=== PATIENT | female | born 1935 | race Caucasian/White ===

== ENCOUNTER 2023-06-24 17:17 | Emergency (ER) | payer MEDICARE, BC, SELFPAY ==
[2023-06-24 17:22] VITALS: BP 130/83; BMI 27.0
[2023-06-24 17:30] VITALS: BP 130/83
[2023-06-24 17:37] LABS: % Basophils 0.3 % (0-2); % Eosinophils 1.1 % (0-6); % Immature Granulocytes 0.8 % (0-0.5); % Lymphocytes 27.7 % (20.5-51.1); % Monocytes 9.6 % (1.7-9.3); % Neutrophils 60.5 % (42.2-75.2); Absolute Eosinophils 0.1 10^3/uL (0-0.7); Absolute Immature Granulocytes 0.1 10^3/uL (0-0.05); Absolute Lymphocytes 1.8 10^3/uL (1.2-3.4); Absolute Monocytes 0.6 10^3/uL (0.1-0.6); Hematocrit 33.4 % (37.0-47.0); Hemoglobin 11.5 g/dL (12.0-16.0); Mean Corp Hgb Conc. 34.4 g/dL (33.0-37.0); Nucleated Red Blood Cells % 0 %; Platelet Count 170 10^3/uL (130-400); Red Blood Cell Count 3.71 10^6/uL (4.20-5.40); Red Cell Dist. Width 12.3 % (11.5-14.5); White Blood Cell Count 6.7 10^3/uL (4.8-10.8)
[2023-06-24 17:53] LABS: ALT (SGPT) 15 U/L (0-35); AST (SGOT) 19 U/L (14-36); Albumin 3.9 g/dl (3.5-5.0); Alkaline Phosphatase 61 U/L (38-126); Blood Urea Nitrogen 95 mg/dl (7-17); Calcium 10.4 mg/dl (8.4-10.2); Carbon Dioxide 26 mmol/L (22-30); Chloride 95 mmol/L (98-107); Estimated Creatinine Clearance 31 ml/min; Glucose 358 mg/dl (70-99); Potassium 3.6 mmol/L (3.5-5.1); Sodium 134 mmol/L (135-145); Total Bilirubin 0.6 mg/dl (0.2-1.3); Total Protein 6.7 g/dl (6.3-8.2); eGFR 48.03
[2023-06-24 18:00] VITALS: BP 138/77
[2023-06-24 18:03] LABS: Troponin I < 0.012 ng/ml
--- NOTE | 2023-06-24 18:54 | ED.GENMED ---
History of Present Illness
General
Chief Complaint: Chest Pain
Source: patient
Exam Limitations: none
Time Seen by Provider: 06/24/23 18:38
Travel History
Have you had any contact with someone who has COVID-19?: No
Do you have any symptoms of coronavirus? Fever > 100 degrees, chills, cough, shortness of breath, sore throat, loss of taste or smell, muscle aches, or headache?: No
History of Present Illness
History of Present Illness:
88-year-old female presents from facility with complaints of generalized discomfort. She is somewhat of a difficult historian but complains of pain all over. She was that she could have pneumonia at her facility. No reported fever. She denies
any urinary symptoms. She denies chest pain to me. She denies shortness of breath. No other complaints at this time.
Past History
Past History
ED Past Medical History: NIDDM and Other (Diverticulitis, diverticulosis, stress incontinence, right bundle, cataracts)
ED Past Surgical History: Orthopedic (Carpal tunnel release) and Other (Cataracts)
Social History
Tobacco: Non-smoker
Alcohol: None
Drug: None
Personal:
Living: snf
Phy Exam
Physical Exam
Physical Exam:
General: Well appearing female, NAD
HEENT: NC/AT
Heart: RRR, no mumurs
Lungs; No obvious wheeze or rales
Ext: No cyanosis or edema
skin: warm, no rashes
Psych: anxious, tearful
Scores
Heart Score for Chest Pain Patients
STEMI patient?: No
History: Slightly or Non-Suspicious
ECG: Normal
Age: >/= 65 years
Risk Factors: 1 or 2 Risk Factors
Troponin: </= Normal Limit
Heart Score for Chest Pain Patients: 3
Heart Score Risk: 2.5% MACE over next 6 weeks
Course
Orders/Labs/Results
Orders:
Orders
06/24/23 17:25
Electrocardiogram (*1) Urgent
Reason for Study: Chest Pain
EKG- Treatment ONCE
06/24/23 17:32
Complete Blood Count/With Diff Urgent
Comprehensive Metabolic Panel Urgent
Creatine Phosphokinase Urgent
Comment: ADD ON
NT-proBNP Urgent
Comment: ADD ON
Troponin I Urgent
06/24/23 18:51
CR Chest - 2 Views Urgent
Comment:
Reason For Exam: cough
06/24/23 18:54
Add On- LAB Urgent
Tests Added?: cpk
06/24/23 18:58
COVID-19 Antigen Urgent
Source: Nasal Swab
Influenza A+B Rapid Molecular Urgent
KATT Source: Nasal Swab
Specimen Description:
06/24/23 18:59
Add On- LAB Stat
Tests Added?: NT-proBNP
06/24/23 21:34
Acetaminophen [Tylenol] 650 mg PO NOW STA
06/24/23 22:05
Urinalysis Reflex To Culture Urgent
Date Specimen was Collected: 06/24/23
Time Specimen was Collected: 22:04
06/24/23 22:37
0.9% Sodium Chloride 500 ml [Nss] 500 ml IV BOLUS
Abnormal Lab Results
06/24/23 06/24/23
17:32 22:05
RBC 3.71 L 10^6/uL
(4.20-5.40)
Hgb 11.5 L g/dL
(12.0-16.0)
Hct 33.4 L %
(37.0-47.0)
Abs Immat Gran (auto) 0.1 H 10^3/uL
(0-0.05)
Immature Gran % 0.8 H %
(0-0.5)
Monocytes % 9.6 H %
(1.7-9.3)
Sodium 134 L mmol/L
(135-145)
Chloride 95 L mmol/L
(98-107)
BUN 95 H mg/dl
(7-17)
Creatinine 1.1 H mg/dL
(0.6-1.0)
Glucose 358 H mg/dl
(70-99)
Calcium 10.4 H mg/dl
(8.4-10.2)
Urine Glucose 1+ A
(Negative)
06/24/23 17:32
06/24/23 17:32
Vital Signs
Initial and Last Documented VS:
Initial Vital Signs
BP
130/83
06/24/23 17:22
Last Documented Vital Signs
Temp Pulse Resp BP Pulse Ox
97.7 F 76 17 154/116 94
06/24/23 17:30 06/24/23 20:15 06/24/23 20:15 06/24/23 20:01 06/24/23 20:01
MDM/Problems Addressed
Differential Diagnosis Includes:
Generalized discomfort. No specific localized complaints to offer. She was told she had coarse breath sounds at the facility. Will check labs. Will get x-ray of chest COVID and flu as well as urinalysis.
*Critical Care Note
Total Time (30-74mins, 75-104mins- exclusive of procedures): Not Applicable
Update Note
Update Note:
Patient reevaluated multiple times. Vital signs remained stable. Urinalysis was obtained which is negative. Patient looks little dry with a BUN elevation slightly elevated blood sugar. She was given some fluids here but no indication for any
admission to hospital. Discharge back to facility
ED Attending Note
-
Portions of this chart may have been created with voice recognition software.� Occasional wrong word or��sound alike� substitutions may have occurred due to the inherent limitations of voice recognition software.
Discharge Plan
Departure
Patient Disposition: Home (Routine Discharge)
Date of Disposition: 06/24/23
Time of Disposition: 23:16
Patient with high blood pressure during this ER visit?: No
Discharge Problem:
Diabetes mellitus with neuropathy
Prescriptions:
No Action
carvedilol 25 mg Tablet
25 mg PO BID
ipratropium-albuterol 0.5 mg-3 mg(2.5 mg base)/3 mL Solution For Nebulization
3 ml INHALATION R Q6 PRN (Reason: SOB/wheeze)
trazodone 50 mg Tablet
50 mg PO HS
melatonin 3 mg Tablet
3 mg PO HS
acetaminophen [Tylenol Extra Strength] 500 mg Tablet
1,000 mg PO BID
prednisone 2.5 mg Tablet
2.5 mg PO DAILY
levothyroxine [Synthroid] 125 mcg Tablet
125 mcg PO DAILY
Rx Instructions:
brand not generic
fluticasone propionate 50 mcg/actuation [place],Suspension
1 spray INTRANASAL BID
insulin aspart U-100 [Novolog FlexPen U-100 Insulin] 100 unit/mL (3 mL) insulin pen
5 units SC MEALS
Patient Comments:
151-200=2units, 201-250=3units, 251-300=4units,301-350=5units, 351-400=6units
ferrous sulfate [FeroSul] 325 mg (65 mg iron) tablet
325 mg PO DAILY
furosemide [Lasix] 20 mg Tablet
20 mg PO BID@0800,1600
ibuprofen [Motrin IB] 200 mg Capsule
600 mg PO Q12H PRN (Reason: Moderate Pain)
alum-mag hydroxide-simeth [Maalox Maximum Strength] 400-400-40 mg/5 mL Suspension
30 ml PO DAILY PRN (Reason: indigestion )
potassium chloride 10 mEq Tablet Extended Release
10 meq PO DAILY
hydrocortisone [Preparation H Hydrocortisone] 1 % Cream
1 applic SC BID
Rx Instructions:
apply to hemorrhoids
acetaminophen [Tylenol] 325 mg Tablet
650 mg PO Q6H PRN (Reason: mild pain)
docusate sodium [Colace] 100 mg Capsule
200 mg PO DAILY
gabapentin 100 mg Capsule
100 mg PO BID
insulin aspart U-100 [Novolog FlexPen U-100 Insulin] 100 unit/mL (3 mL) Insulin Pen
0 - 7 sliding scale dose SC ACHS
Rx Instructions:
if 70-150= 0; 151-200= 2; 201-250= 3; 251-300= 4; 301-350= 5; 351-400= 6; 401-450= 7
methenamine hippurate 1 gram Tablet
1 g PO DAILY Qty: 30 0RF
clonazepam 0.25 mg Tablet,Disintegrating
0.25 mg PO BID Qty: 2 0RF
polyethylene glycol 3350 [Miralax] 17 gram Powder In Packet
17 g PO DAILY PRN (Reason: constipation)
sennosides 8.8 mg/5 mL Syrup
8.8 mg PO Q12H PRN (Reason: constipation)
lorazepam 0.5 mg Tablet
0.25 mg PO BID
pantoprazole 40 mg Tablet,Delayed Release (Dr/Ec)
40 mg PO DAILY
icosapent ethyl [Vascepa] 1 gram Capsule
2 g PO BID
insulin glargine [Lantus Solostar U-100 Insulin] 100 unit/mL (3 mL) insulin pen
15 unit SC HS
Referrals:
Twin Gonzalez MD [Family Provider] -
Activity Restrictions/Additional Instructions:
Continue current medication regimen. Return for worsening symptoms otherwise
Interventions
Interventions:
*Risk Screen - Suicide Last Done: 06/24/23 17:37
*General Assessment Last Done: 06/24/23 17:43
*Neglect/Abuse Screening Last Done: 06/24/23 17:38
*ED COVID-19 Vaccine History Last Done: 06/24/23 17:40
ED- Cardiac Assessment Last Done: 06/24/23 17:36
[2023-06-24 19:00] VITALS: BP 100/85
[2023-06-24 19:20] LABS: COVID-19 Antigen Negative (Negative)
[2023-06-24 19:26] LABS: Creatine Phosphokinase 54 U/L (30-135)
[2023-06-24 19:34] LABS: NT-proBNP 720 pg/ml
[2023-06-24 20:01] VITALS: BP 154/116
[2023-06-24] MEDS: TYLENOL 650 MG PO (21:45)
[2023-06-24 22:09] LABS: Urine Albumin Trace (Neg - Trace); Urine Bilirubin Negative (Negative); Urine Character Clear (Clear); Urine Color Yellow; Urine Glucose 1+ (Negative); Urine Ketone Negative (Negative); Urine Leukocyte Negative (Negative); Urine Nitrite Negative (Negative); Urine Occult Blood Negative (Negative); Urine Specific Gravity 1.015 (<1.030); Urine Urobilinogen Negative (Neg - 1+)
[2023-06-24] MEDS: NSS 500 IV (22:49)
[2023-06-25] VITALS: BP 136/89
[2023-06-25 01:44] VITALS: BP 156/92
== END 2023-06-25 02:01 | disposition home or self-care (01) ==
LOC: EMR 17:17
PROVIDERS: Physician Assistant; EMERGENCY PHYSICIAN Emergency Medicine; FAMILY PHYSICIAN Internal Medicine
DX: E11.40 Type 2 diabetes mellitus with diabetic neuropathy, unspecified (principal); R07.89 Other chest pain; E11.36 Type 2 diabetes mellitus with diabetic cataract
CPT/HCPCS: 99283; 71046; 80053; 81003; 82550; 83880; 84484; 85025; 87502; 87811; 93005

== ENCOUNTER 2023-08-25 22:44 | Inpatient (IN) | payer MEDICARE, BC, SELFPAY ==
[2023-08-25 19:37] VITALS: BP 132/78
[2023-08-25 19:38] VITALS: BMI 29.5
[2023-08-25 19:41] VITALS: BP 132/78
--- NOTE | 2023-08-25 19:47 | ED.GENMED ---
History of Present Illness
General
Chief Complaint: Breathing Problem
Source: patient, records, ambulance crew, assisted and assisted records
Exam Limitations: none
Time Seen by Provider: 08/25/23 19:36
Nursing documentation reviewed up to this point in time: agreed with
Travel History
Have you had any contact with someone who has COVID-19?: Unable to Answer
Do you have any symptoms of coronavirus? Fever > 100 degrees, chills, cough, shortness of breath, sore throat, loss of taste or smell, muscle aches, or headache?: No
History of Present Illness
History of Present Illness:
88-year-old female with a past medical history of hypertension, GERD, insulin-dependent diabetes, congestive heart failure who presents to the emergency department from [facility] via EMS for evaluation of weakness and shortness of
breath. Patient reports that she has been feeling generally unwell for the past week. She says that she has been feeling pain all over particularly in her legs. She says she has been feeling very weak. She says she has a very poor appetite. She
says she has had some increasing shortness of breath. Apparently last night patient felt symptoms were worsening, had some nausea and 3 episodes of vomiting. Finally sent to the emergency room today for evaluation. She denies any chest pain.
Denies abdominal pain. She denies any fever. She has not noticed any swelling in her legs despite report of leg pain. She denies any diarrhea. She denies any other complaints. I spoke to the assisted staff to obtain collateral history (I
spoke with the nurse who takes care of her every day): Apparently at baseline patient is very 'feisty' and yells quite a lot at the nursing staff. Apparently last night she looked unwell had an episode of vomiting and nursing staff was concerned
that she could eventually have aspirated while vomiting as she seemed to be having some breathing difficulties afterwards and was coughing up some phlegm. This morning she seemed very lethargic was not yelling like she normally would and this
concerned nursing staff which was the trigger to send her to the emergency room for assessment.
Past History
Past History
ED Past Medical History: NIDDM and Other (Diverticulitis, diverticulosis, stress incontinence, right bundle, cataracts)
ED Past Surgical History: Orthopedic (Carpal tunnel release) and Other (Cataracts)
Social History
Tobacco: Non-smoker
Alcohol: None
Drug: None
Personal:
Living: assisted
Review of Systems
Review of Systems
All Other Systems: ROS reviewed and negative except as documented in HPI and ROS
Constitutional: Reports fatigue; Denies fever or chills
EENT: Denies sore throat or runny nose
Respiratory: Reports cough and trouble breathing
Cardiac: Denies chest pain or palpitations
ABD/GI: Reports nausea and vomiting; Denies abdominal pain or diarrhea
: Denies flank pain
Musculoskeletal: Reports muscle pain (Myalgias); Denies edema, neck pain or back pain
Neurological: Denies headache, weakness or numbness
Phy Exam
Physical Exam
Physical Exam:
General: Awake, alert; chronically ill-appearing
Head: Normocephalic, atraumatic
Eyes: Conjunctiva normal, sclera anicteric
Throat: Airway intact, handling secretions
Neck: Trachea midline, supple without meningismus
Lungs: Coarse breath sounds at the right lung base; she is hypoxic to 86% requiring 4 L nasal cannula, she is mildly tachypneic
Heart: Regular rate and rhythm, no murmurs, gallops, or rubs
Abd: Soft, non distended, nontender
Neuro: Cranial nerves grossly intact, speech fluid
Extremities: Trace edema in the lower extremities bilaterally, distal extremities warm and well-perfused
Scores
Heart Failure Risk
Heart Failure Risk Score: Not Applicable
Heart Score for Chest Pain Patients
STEMI patient?: Not applicable
Withdrawal Assessment of Alcohol
Withdrawal Assessment Completed?: Not applicable
Course
Orders/Labs/Results
Orders:
Orders
08/25/23 19:35
Electrocardiogram (*1) Urgent
Reason for Study: Shortness of Breath
08/25/23 19:36
EKG- Treatment ONCE
08/25/23 19:39
CR Chest Portable - 1 View Urgent
Comment:
Reason For Exam: sob
Reason Study Needs to be Portable: Unable to Transport
08/25/23 19:40
Complete Blood Count/With Diff Urgent
Comprehensive Metabolic Panel Urgent
08/25/23 19:41
COVID-19 Antigen Urgent
Source: Nasal Swab
Lactate Level [Lactic Acid] Urgent
Influenza A+B Rapid Molecular Urgent
KATT Source: Nasal Swab
Specimen Description:
08/25/23 19:50
NT-proBNP Urgent
Blood Culture Q30M
KATT Source: Blood/Venous
Specimen Description:
Blood Culture Q30M
KATT Source: Blood/Venous
Specimen Description:
08/25/23 20:02
Cefepime HCl [Maxipime] 1,000 mg IV NOW STA
08/25/23 20:07
Vancomycin [Vancocin] 1,500 mg 0.9% Sodium Chloride [Nss] 20 ml 0.9% Sodium Chloride 250 ml [Nss] 250 ml IV NOW
08/25/23 20:35
NSS 500mL Bolus over 1 hr 0.9% Sodium Chloride 500 ml [Nss] 500 ml IV BOLUS
Abnormal Lab Results
08/25/23 08/25/23
19:40 19:41
WBC 16.1 H 10^3/uL
(4.8-10.8)
RBC 4.02 L 10^6/uL
(4.20-5.40)
Hct 35.7 L %
(37.0-47.0)
MPV 10.5 H fL
(7.4-10.4)
Abs Immat Gran (auto) 0.1 H 10^3/uL
(0-0.05)
Absolute Neuts (auto) 11.3 H 10^3/uL
(1.4-6.5)
Absolute Monos (auto) 1.9 H 10^3/uL
(0.1-0.6)
Lymphocytes % 16.9 L %
(20.5-51.1)
Monocytes % 11.7 H %
(1.7-9.3)
Chloride 93 L mmol/L
(98-107)
Carbon Dioxide 31 H mmol/L
(22-30)
BUN 100 H mg/dl
(7-17)
Creatinine 1.9 H mg/dL
(0.6-1.0)
Glucose 124 H mg/dl
(70-99)
Lactic Acid 2.1 H mmol/L
(0.7-2.0)
Calcium 10.5 H mg/dl
(8.4-10.2)
08/25/23 19:40
08/25/23 19:40
Vital Signs
Initial and Last Documented VS:
Initial Vital Signs
BP
132/78
08/25/23 19:37
Last Documented Vital Signs
Temp Pulse Resp BP Pulse Ox
36.8 C 80 19 132/78 91
08/25/23 19:41 08/25/23 19:41 08/25/23 19:41 08/25/23 19:41 08/25/23 19:45
MDM/Problems Addressed
Differential Diagnosis Includes:
Pneumonia, aspiration pneumonitis, bronchitis
MDM/Problems Addressed:
88-year-old female presents for evaluation of feeling generally unwell�per nursing staff had some vomiting last night there was concern for aspiration, increased breathing difficulties today. She arrives to us in mild respiratory distress with
hypoxia and tachypnea�improved with nasal cannula. Physical exam as above. Plan to place an IV send labs including a CBC and a CMP, lactate, blood cultures. Will send viral swabs. Will check an EKG. Check a BNP. Will call for portable chest
x-ray. Will monitor very closely reassess after the above.
Labs reviewed: CBC shows a leukocytosis to 16.1. CMP shows JOSELIN with creatinine of 1.9 from baseline of 1. Lactate marginally elevated at 2.1. Will provide some gentle fluids given history of CHF will hold on aggressive IV fluids. Chest x-ray
reviewed by me shows some haziness of the right cardiac silhouette questionable pneumonia differential would also include an aspiration pneumonitis. Will cover with broad-spectrum antibiotics. Cultures sent off. Will admit for continued
management. Discussed with hospitalist for admission.
Chronic conditions affecting care:
CHF
*Radiology
Radiology exam reviewed: preliminary read by ED provider
*Pulse Oximetry
Patient hypoxic: yes
*EKG
Interpreted by ED Provider?: Yes
Comparison EKG: no changes
Heart Rate: 80
Rate: normal
Rhythm: sinus
[place]: normal axis
Interval: normal interval
QRS Pattern: right bundle branch block
Ischemia: non-specific ST changes
*Critical Care Note
Total Time (30-74mins, 75-104mins- exclusive of procedures): 31
comment:
Critical care statement: A total of 31 minutes of critical care time was provided for this patient. This includes management of unstable vital signs, evaluation of the patient at bedside, frequent reassessment, discussion with
consultants/hospitalist, and review of pertinent medical records. This time was separate from time utilized to perform any aforementioned documented procedures
Data Reviewed
Source: patient, ambulance crew, assisted and assisted records
Patient Management
Discussion with other providers: Hospitalist (Discussed with hospitalist)
Escalation/DeEscalation of care consider admission/obs:
Admission indicated
ED Attending Note
-
Portions of this chart may have been created with voice recognition software.� Occasional wrong word or��sound alike� substitutions may have occurred due to the inherent limitations of voice recognition software.
Discharge Plan
Departure
Patient Disposition: Admit
Date of Disposition: 08/25/23
Time of Disposition: 20:37
Admit to doctor: Foster
Presentation/result/management discussed w/ accepting MD/DO: Hospitalist
Discharge Problem:
Acute hypoxemic respiratory failure, Aspiration pneumonia, Sepsis, JOSELIN (acute kidney injury)
Prescriptions:
No Action
carvedilol 25 mg Tablet
25 mg PO BID
ipratropium-albuterol 0.5 mg-3 mg(2.5 mg base)/3 mL Solution For Nebulization
3 ml INHALATION R Q6 PRN (Reason: SOB/wheeze)
trazodone 50 mg Tablet
50 mg PO HS
melatonin 3 mg Tablet
3 mg PO HS
acetaminophen [Tylenol Extra Strength] 500 mg Tablet
1,000 mg PO BID
prednisone 2.5 mg Tablet
2.5 mg PO DAILY
levothyroxine [Synthroid] 125 mcg Tablet
125 mcg PO DAILY
Rx Instructions:
brand not generic
fluticasone propionate 50 mcg/actuation [place],Suspension
1 spray INTRANASAL BID
insulin aspart U-100 [Novolog FlexPen U-100 Insulin] 100 unit/mL (3 mL) insulin pen
7 units SC MEALS
Patient Comments:
151-200=2units, 201-250=3units, 251-300=4units,301-350=5units, 351-400=6units
ferrous sulfate [FeroSul] 325 mg (65 mg iron) tablet
325 mg PO DAILY
ibuprofen [Motrin IB] 200 mg Capsule
600 mg PO Q12H PRN (Reason: Moderate Pain)
alum-mag hydroxide-simeth [Maalox Maximum Strength] 400-400-40 mg/5 mL Suspension
30 ml PO DAILY PRN (Reason: indigestion )
potassium chloride 10 mEq Tablet Extended Release
10 meq PO DAILY
hydrocortisone [Preparation H Hydrocortisone] 1 % Cream
1 applic [place] BID
Rx Instructions:
apply to hemorrhoids
acetaminophen [Tylenol] 325 mg Tablet
650 mg PO Q6H PRN (Reason: mild pain)
docusate sodium [Colace] 100 mg Capsule
200 mg PO DAILY
gabapentin 100 mg Capsule
100 mg PO BID
insulin aspart U-100 [Novolog FlexPen U-100 Insulin] 100 unit/mL (3 mL) Insulin Pen
0 - 7 sliding scale dose [place] ACHS
Rx Instructions:
if 70-150= 0; 151-200= 2; 201-250= 3; 251-300= 4; 301-350= 5; 351-400= 6; 401-450= 7
methenamine hippurate 1 gram Tablet
1 g PO DAILY Qty: 30 0RF
polyethylene glycol 3350 [Miralax] 17 gram Powder In Packet
17 g PO DAILY PRN (Reason: constipation)
sennosides 8.8 mg/5 mL Syrup
8.8 mg PO Q12H PRN (Reason: constipation)
pantoprazole 40 mg Tablet,Delayed Release (Dr/Ec)
40 mg PO DAILY
icosapent ethyl [Vascepa] 1 gram Capsule
2 g PO BID
insulin glargine [Lantus Solostar U-100 Insulin] 100 unit/mL (3 mL) insulin pen
15 unit SC HS
clonazepam 0.5 mg Tablet
0.25 mg PO BID
tramadol 25 mg Tablet
25 mg PO Q6H PRN (Reason: severe pain)
Interventions
Interventions:
*Risk Screen - Suicide Last Done: 08/25/23 19:41
*General Assessment Last Done: 08/25/23 19:41
*Neglect/Abuse Screening Last Done: 08/25/23 19:41
ED- Fall Risk Assessment Last Done: 08/25/23 19:45
*ED COVID-19 Vaccine History Last Done: 08/25/23 19:41
ED- Cardiac Assessment Last Done: 08/25/23 19:45
ED- Pulmonary Assessment Last Done: 08/25/23 19:45
Discharge Date and Time
Print Language: CAMEROONIAN
[2023-08-25 19:57] LABS: % Basophils 0.2 % (0-2); % Eosinophils 0.1 % (0-6); % Immature Granulocytes 0.5 % (0-0.5); % Lymphocytes 16.9 % (20.5-51.1); % Monocytes 11.7 % (1.7-9.3); % Neutrophils 70.6 % (42.2-75.2); Absolute Immature Granulocytes 0.1 10^3/uL (0-0.05); Absolute Lymphocytes 2.7 10^3/uL (1.2-3.4); Absolute Monocytes 1.9 10^3/uL (0.1-0.6); Absolute Neutrophils 11.3 10^3/uL (1.4-6.5); Hematocrit 35.7 % (37.0-47.0); Hemoglobin 12.3 g/dL (12.0-16.0); Mean Corp Hgb Conc. 34.5 g/dL (33.0-37.0); Mean Corpuscular Hgb 30.6 pg (27.0-31.0); Mean Corpuscular Volume 88.8 fL (81.0-99.0); Mean Platelet Volume 10.5 fL (7.4-10.4); Nucleated Red Blood Cells % 0 %; Platelet Count 186 10^3/uL (130-400); Red Blood Cell Count 4.02 10^6/uL (4.20-5.40); White Blood Cell Count 16.1 10^3/uL (4.8-10.8)
[2023-08-25 20:05] LABS: Lactic Acid 2.1 mmol/L (0.7-2.0)
[2023-08-25] MEDS: MAXIPIME 1000 MG IV (20:05)
[2023-08-25 20:12] LABS: ALT (SGPT) 18 U/L (0-35); AST (SGOT) 24 U/L (14-36); Albumin 4.4 g/dl (3.5-5.0); Alkaline Phosphatase 65 U/L (38-126); Blood Urea Nitrogen 100 mg/dl (7-17); Calcium 10.5 mg/dl (8.4-10.2); Carbon Dioxide 31 mmol/L (22-30); Chloride 93 mmol/L (98-107); Estimated Creatinine Clearance 19 ml/min; Glucose 124 mg/dl (70-99); Potassium 4.1 mmol/L (3.5-5.1); Sodium 136 mmol/L (135-145); Total Bilirubin 0.9 mg/dl (0.2-1.3); Total Protein 7.4 g/dl (6.3-8.2); eGFR 24.93
[2023-08-25 20:18] LABS: COVID-19 Antigen Negative (Negative)
[2023-08-25 20:34] LABS: NT-proBNP 3950 pg/ml
[2023-08-25] MEDS: VANCOCIN 300 ML IV (20:38)
[2023-08-25] MEDS: VANCOCIN 300 MG IV (20:38)
[2023-08-25 21:00] VITALS: BP 137/63
--- NOTE | 2023-08-25 21:17 | HPS.HSE ---
Family Physician
-
Family Physician: Twin Gonzalez
Chief Complaint
-
Abd pain, N/V
History of Present Illness
Patient is an 88y F with PMH significant for hypothyroidism, diverticular disease, DM and chronic pain who presents to ED complaining of abdominal pain, N/V and fatigue. History obtained from the patient and from NH record. Patient states that
she has had abdominal pain intermittently for the past several days. She notes prior history of similar complaints and blames the food at [facility] for her symptoms. Last PM, she had several episodes of non-bloody, bilious emesis. This AM
nursing staff noted that she was fatigued / less animated than she usually is. She was noted to have diminished SpO2 on vitals and would easily become SOB with activity or with speaking.
Patient was sent to the ED for evaluation.
At the time of my examination, patient continues to complain of abdominal pain and nausea. She has had no noted emesis since arrival here.
She complains of burning with urination, weakness in the legs and pain in the low back / backside.
Patient admits to becoming short-winded with minimal activity here in the ED, but denies any cough, fevers / chills, etc.
Medical History
Past Medical History
Past Medical History: Reports Other
Additional Past Medical History:
Anemia of Chronic Disease
Diverticular Disease
Hypothyroidism
GERD
Rheumatoid Arthritis
Anxiety / Depression
Hypertension
DM-II
Peripheral Neuropathy
Chronic Pain Syndrome
Past Surgical History: Reports Other
Additional Past Surgical History:
R Hip ORIF
Social History
Tobacco: Non-smoker
Alcohol: None
Drug: None
Living: Fpc
Family History
Family History: Not pertinent
Allergies / Home Medications
Allergies reflects when Allergies were last updated in [facility].
Home Medications with original date entered in [facility]
Allergy/Medication List:
Allergies
Allergy/AdvReac Type Severity Reaction Status Date / Time
codeine Allergy Unknown Verified 06/24/23 17:42
erythromycin base Allergy Unknown Verified 06/24/23 17:42
Penicillins Allergy Unknown Verified 06/24/23 17:42
Home Medications
acetaminophen 500 mg tablet (Tylenol Extra Strength) 1,000 mg PO BID Pain 05/30/22
carvedilol 25 mg tablet 25 mg PO BID Heart disease/condition 05/30/22
fluticasone propionate 50 mcg/actuation nasal spray,suspension 1 spray intranasal BID Allergies 05/30/22
ipratropium 0.5 mg-albuterol 3 mg (2.5 mg base)/3 mL nebulization soln 3 ml inhalation R Q6 PRN SOB/wheeze 05/30/22
levothyroxine 125 mcg tablet (Synthroid) 125 mcg PO DAILY Thyroid 05/30/22
melatonin 3 mg tablet 3 mg PO HS Sleep 05/30/22
prednisone 2.5 mg tablet 2.5 mg PO DAILY Anti-inflammatory 05/30/22
trazodone 50 mg tablet 50 mg PO HS Sleep 05/30/22
insulin aspart U-100 100 unit/mL (3 mL) subcutaneous pen (Novolog FlexPen U-100 Insulin aspart) 7 units SC MEALS Diabetes 08/03/22
aluminum-mag hydroxide-simethicone 400 mg-400 mg-40 mg/5 mL oral susp (Maalox Maximum Strength) 30 ml PO DAILY PRN indigestion 11/03/22
ferrous sulfate 325 mg (65 mg iron) tablet (FeroSul) 325 mg PO DAILY Supplement 11/03/22
hydrocortisone 1 % topical cream (Preparation H Hydrocortisone) 1 applic [place] BID Hemorrhoids 11/03/22
ibuprofen 200 mg capsule (Motrin IB) 600 mg PO Q12H PRN Moderate Pain 11/03/22
potassium chloride 10 mEq tablet,extended release 10 meq PO DAILY Electrolyte Repletion 11/03/22
acetaminophen 325 mg tablet (Tylenol) 650 mg PO Q6H PRN mild pain 04/30/23
docusate sodium 100 mg capsule (Colace) 200 mg PO DAILY Cough 04/30/23
gabapentin 100 mg capsule 100 mg PO BID Pain 04/30/23
insulin aspart U-100 100 unit/mL (3 mL) subcutaneous pen (Novolog FlexPen U-100 Insulin aspart) 0 - 7 sliding scale dose SC ACHS 05/01/23
methenamine hippurate 1 gram tablet 1 g PO DAILY #30 tabs 05/06/23
icosapent ethyl 1 gram capsule (Vascepa) 2 g PO BID 06/24/23
insulin glargine 100 unit/mL (3 mL) subcutaneous pen (Lantus Solostar U-100 Insulin) 15 unit SC HS Diabetes 06/24/23
pantoprazole 40 mg tablet,delayed release 40 mg PO DAILY 06/24/23
polyethylene glycol 3350 17 gram oral powder packet (Miralax) 17 g PO DAILY PRN constipation 06/24/23
sennosides 8.8 mg/5 mL oral syrup 8.8 mg PO Q12H PRN constipation 06/24/23
clonazepam 0.5 mg tablet 0.25 mg PO BID 08/25/23
tramadol 25 mg tablet 25 mg PO Q6H PRN severe pain 08/25/23
Review of Systems
-
History Source: Patient
A 12 point ROS was completed and negative except as noted: Yes
Constitutional: Reports Fatigue; Denies Fever or Chills
EENT: Denies Sore Throat
Respiratory: Denies Cough or Trouble Breathing
Cardiac: Denies Chest Pain or Palpitations
Abdomen/GI: Reports Abdominal Pain, Nausea and Vomiting; Denies Diarrhea, Bloody Stools or Black Stools
: Denies Dysuria or Frequency
Musculoskeletal: Reports Other (Low Back Pain); Denies Joint Pain or Edema
Neurological: Denies Dizzy or Headache
Psych: Denies Depression or Anxiety
Physical Exam
Vital Signs
Vital Signs
Temp Pulse Resp BP Pulse Ox
98.2 F 80 29 137/63 94
08/25/23 19:41 08/25/23 21:00 08/25/23 21:00 08/25/23 21:00 08/25/23 21:00
Physical Exam
General: Other (88y F in mild distress due to abdominal pain, dyspnea.)
HEENT: Moist mucous membranes and PERRLA
Respiratory: Other (Decreased at bases - otherwise clear.)
Cardiac: S1/S2 and Regular Rhythm; No Murmur
GI: Other (Softly distended. Exquisitely tender - seemingly [id number] to exam. Pos BS.)
Musculoskeletal: No Clubbing, No Cyanosis and No Edema
Neuro: AO x 3
Laboratory Results
-
08/25/23 19:40
08/25/23 19:40
Laboratory Results
Lactic Acid 2.1 mmol/L (0.7-2.0) H 08/25/23 19:41
Total Bilirubin 0.9 mg/dl (0.2-1.3) 08/25/23 19:40
AST 24 U/L (14-36) 08/25/23 19:40
ALT 18 U/L (0-35) 08/25/23 19:40
Alkaline Phosphatase 65 U/L (38-126) 08/25/23 19:40
Impression/Plan
-
A/P: Patient is an 88y F with PMH significant for anxiety, hypothyroidism, DM-II and chronic pain who presents to ED complaining of lethargy, abdominal pain and N/V.
Abdominal Pain, N/V
Diverticular Disease
- Admit for further evaluation and treatment.
- Need to further evaluate her GI symptoms which she notes as her primary complaint.
- Check CT A/P now to rule out obstruction, diverticulitis, etc.
- Empiric IV abx for now.
- NPO, IVF support, pain control, antiemetics, etc as needed.
- Follow for any recurrent N/V. Follow for improvement in pain.
Acute Hypoxemic Respiratory Insufficiency
- Patient with reported SpO2 = 97% at [facility] today. Now in 90s on supplemental oxygen.
- CXR unremarkable.
- Certainly possible that aspiration pneumonia / pneumonitis occurred during N/V episodes.
- Abx as noted above.
- Speech therapy evaluation. Aspiration precautions.
- Nebs / mucolytics. Follow for clinical changes.
JOSELIN
- SCr = 1.9 compared to baseline of around 1.0.
- Multiple lab indicators suggestive of hypovolemia / hemoconcentration.
- IVF support.
- Follow for improvement in labs / lytes / renal function.
Heme Positive Stool
- Noted to have heme occult positive stool in the ED.
- IV PPI BID for now.
- No evidence of significant anemia, hemodynamic instability, etc.
- Follow for changes in H&H.
DM-II
- Stable. Continue basal : bolus insulin regimen.
- Update A1C.
Chronic Pain Syndrome
Anxiety / Depression
- Question degree of current abdominal pain is related to her chronic syndrome?
- Need to exclude other, more acute causes as noted above.
- Continue supportive care / symptom control.
DVT Prophylaxis: SCDs
Code Status: DNR
[2023-08-25] MEDS: NSS 500 IV (21:42)
[2023-08-25] MEDS: OMNIPAQUE 50 ML PO (21:42)
[2023-08-25 22:00] VITALS: BP 140/54
[2023-08-25 22:33] LABS: Urine Albumin Trace (Neg - Trace); Urine Bilirubin 1+ (Negative); Urine Character Clear (Clear); Urine Color Yellow; Urine Glucose Negative (Negative); Urine Ketone Negative (Negative); Urine Leukocyte Trace (Negative); Urine Nitrite Negative (Negative); Urine Occult Blood 1+ (Negative); Urine Specific Gravity 1.015 (<1.030); Urine Urobilinogen Negative (Neg - 1+)
[2023-08-25 22:38] LABS: Urine Squamous Cell >30 /LPF (Few)
[2023-08-25 22:40] LABS: Urine Bacteria Many (Negative)
[2023-08-25 23:00] VITALS: BP 146/66
[2023-08-26] VITALS (20 sets, daily range): BP systolic 111–153; BP diastolic 39–96; BMI 29.4
[2023-08-26 00:32] LABS: Lactic Acid 0.9 mmol/L (0.7-2.0)
[2023-08-26] MEDS: FLAGYL 500 MG 100 IV ×3 (02:05→16:54)
[2023-08-26] MEDS: ROCEPHIN 1000 MG IV (02:05)
[2023-08-26] MEDS: STERILE WATER FOR INJECTION 10 ML IV (02:05)
[2023-08-26] MEDS: NSS 1000 IV ×2 (03:03→13:00)
[2023-08-26 05:48] LABS: Glucose - Point of Care 191 mg/dl (70-99)
[2023-08-26 06:15] LABS: Hematocrit 31.3 % (37.0-47.0); Hemoglobin 10.6 g/dL (12.0-16.0); Mean Corp Hgb Conc. 33.9 g/dL (33.0-37.0); Mean Corpuscular Hgb 30.7 pg (27.0-31.0); Mean Corpuscular Volume 90.7 fL (81.0-99.0); Mean Platelet Volume 10.5 fL (7.4-10.4); Platelet Count 134 10^3/uL (130-400); Red Blood Cell Count 3.45 10^6/uL (4.20-5.40); White Blood Cell Count 11.1 10^3/uL (4.8-10.8)
[2023-08-26] MEDS: NOVOLOG FLEXPEN-LOW RESISTANCE 1 UNITS SC (06:22)
[2023-08-26 06:46] LABS: Blood Urea Nitrogen 86 mg/dl (7-17); Calcium 9.1 mg/dl (8.4-10.2); Carbon Dioxide 30 mmol/L (22-30); Chloride 98 mmol/L (98-107); Estimated Creatinine Clearance 25 ml/min; Glucose 185 mg/dl (70-99); Potassium 3.3 mmol/L (3.5-5.1); Sodium 138 mmol/L (135-145); eGFR 35.96
[2023-08-26 07:15] LABS: TSH Reflex To Free T4 0.22 uIU/ml (0.47-4.68)
[2023-08-26] MEDS: NEURONTIN 100 MG PO ×2 (08:35→22:10)
[2023-08-26] MEDS: SYNTHROID 125 MCG PO (08:35)
[2023-08-26] MEDS: KLONOPIN 0.25 MG PO ×2 (08:35→22:10)
[2023-08-26] MEDS: DELTASONE 2.5 MG PO (08:36)
[2023-08-26] MEDS: COREG 25 MG PO ×2 (08:36→22:17)
[2023-08-26] MEDS: PROTONIX IV 40 MG IV ×2 (08:37→22:18)
[2023-08-26] MEDS: NSS (PRESERVATIVE FREE) 10 ML IV ×2 (08:37→22:18)
[2023-08-26 08:49] LABS: Glycohemoglobin (HgbA1c) 8.6 % (4.0-5.6)
--- NOTE | 2023-08-26 09:47 | PTOTSP ---
ST Acute Care Evaluation
Pt presents with mild to moderate oropharyngeal dysphagia characterized by reluctance to trial full bite-sizes of hard solids, reduced bolus formation, diffuse oral residue with solids, and weak coughing with sequential sips of liquids.
Recommendations:
- Initiate PO diet of MINCED AND MOIST solids with REGULAR THIN LIQUIDS.
- Medications with single sips of liquids.
- Aspiration precautions: HOB fully upright for all PO intake, small bites/sips, alternate bites/sips.
- COMPUTER GRAPHICS ILLUSTRATOR to follow-up to ensure pt is on safest, least restrictive diet.
[2023-08-26] MEDS: KCL 270 MEQ IV (10:19)
--- NOTE | 2023-08-26 11:49 | CM ---
Addendum entered by Cheryl Baires RN 08/26/23 11:54:
[facility]
Report
[phone]
fax
[phone]
Original Note:
CM reviewed medical records. CM confirmed that she is LTC at [facility]. Plan to return on discharge.
PLAN: [facility] LTC
[2023-08-26 13:05] LABS: Glucose - Point of Care 308 mg/dl (70-99)
[2023-08-26] MEDS: NOVOLOG FLEXPEN-LOW RESISTANCE 4 UNITS SC (13:05)
--- NOTE | 2023-08-26 14:04 | W.PN.HOSP.TC ---
Today's Communication/Plan
-
ECHO
abx
URO eval
IVF
repeat UA, f/u cultures
ADAT
incentive kasandra
Assessment / Plan
Assessment / Plan
General: Other (88y F in mild distress due to abdominal pain, dyspnea.)
HEENT: Moist mucous membranes and PERRLA
Respiratory: Other (Decreased at bases - otherwise clear.)
Cardiac: S1/S2 and Regular Rhythm; No Murmur
GI: Other (Softly distended. Exquisitely tender - seemingly kis-[id number] to exam. Pos BS.)
Musculoskeletal: No Clubbing, No Cyanosis and No Edema
Neuro: AO x 3
A/P: Patient is an 88y F with PMH significant for anxiety, hypothyroidism, DM-II and chronic pain who presents to ED complaining of lethargy, abdominal pain and N/V.
#Abdominal Pain, N/V
-possibly 2/2 to hydronephrosis
-improved
-no obvious GI issues
-ADAT
#Acute Hypoxemic Respiratory Insufficiency
- Patient with reported SpO2 = 97% at [facility]; Now in 90s on supplemental oxygen.
- CXR unremarkable.
- Certainly possible that aspiration pneumonia / pneumonitis occurred during N/V episodes v acute CHF
- Abx as noted above - empiric
- Speech therapy evaluation. Aspiration precautions.
- Nebs / mucolytics. Follow for clinical changes.
- F/u ECHO
-Karey kasandra
#JOSELIN
# Possible secondary to hydronephrosis
�continue IV fluids
� Follow-up urology recommendations
-F/u repeat straight cath to eval for uti although already on abx
#Moderate right hydronephrosis and right hydroureter
� Urology consulted
�follow-up recommendations
#Hypokalemia
-monitor and replete
#7 mm minimally spiculated pulmonary nodule
-f/u CT imaging in 3 months with pulm
Heme Positive Stool
- Noted to have heme occult positive stool in the ED.
- IV PPI BID for now.
- No evidence of significant anemia, hemodynamic instability, etc.
- Follow for changes in H&H.
DM-II
- Stable. Continue basal : bolus insulin regimen.
- Update A1C.
Chronic Pain Syndrome
Anxiety / Depression
- Question degree of current abdominal pain is related to her chronic syndrome?
- Need to exclude other, more acute causes as noted above.
- Continue supportive care / symptom control.
DVT Prophylaxis: SCDs
Code Status: DNR
Total time spent on today's encounter was 50 minutes which included time spent in counseling the patient/family regarding diagnosis and treatment plan as listed above, goals of care, and symptom management. Case was discussed with nursing staff,
specialists, and care coordinators/case management. All labs and imaging personally reviewed by me. Remainder the time spent in detailed review of previous records, lab data, imaging, and other medical provider documentation.
Anticipated Discharge: > 48 hours
Subjective/Interval History
-
date of service: august 26, 2023
No acute events
Objective Data
-
Labs:
Laboratory Results
08/26/23
05:44
WBC 11.1 H
Hgb 10.6 L
Hct 31.3 L
Plt Count 134 D
Sodium 138
Potassium 3.3 L
Chloride 98
Carbon Dioxide 30
BUN 86 H
Creatinine 1.4 H
Glucose 185 H
Calcium 9.1
Vital Signs:
Vital Signs
Temp Pulse Resp BP Pulse Ox
98.1 F 77 25 129/74 97
08/26/23 08:33 08/26/23 13:00 08/26/23 13:00 08/26/23 13:00 08/26/23 13:00
I&O
08/25/23 08/26/23 08/27/23
06:59 06:59 06:59
Output Total 400 / 400
Balance -400 / -400
Review of Systems
-
All other systems: Reviewed and negative
Data Reviewed
-
Diagnostic Radiology: Image personally visualized and interpreted and Report Reviewed by me
CT Scan: Image personally visualized and interpreted and Report Reviewed by me
Labs: Labs Reviewed by me
[2023-08-26 15:33] LABS: Urine Albumin Trace (Neg - Trace); Urine Bilirubin Negative (Negative); Urine Character Clear (Clear); Urine Color Yellow; Urine Glucose 1+ (Negative); Urine Ketone Trace (Negative); Urine Leukocyte Negative (Negative); Urine Nitrite Negative (Negative); Urine Occult Blood Trace (Negative); Urine Urobilinogen Negative (Neg - 1+)
[2023-08-26 15:50] LABS: Urine Bacteria Few (Negative); Urine Red Blood Cell 0-2 /HPF (0-2)
[2023-08-26 17:56] LABS: Glucose - Point of Care 240 mg/dl (70-99)
[2023-08-26] MEDS: NOVOLOG FLEXPEN-LOW RESISTANCE 2 UNITS SC (18:03)
--- NOTE | 2023-08-26 18:09 | TRANSFER ---
pt arrives from ER in hospital bed at 1715. IV fluids infusing. VSS. pt is quinten PEARCE. +bm. oriented to department. plan of care continues.
--- NOTE | 2023-08-26 18:41 | PTCARENOTE ---
pt initially presented as AAOX3 but is however confused to place. pt aaox2. pt reports being incontinent of urine and bowel. static air overlay to be placed onto mattress shortly. pt with foam heel relief boots on that come with her from her
facility. VSS. pt on 2L NC. pt with +bm upon arrival and also + void. NPO at the moment in time. reports abdominal discomfort which waxes and wains, tolerable at the moment in time. pt with distended abdomen which is tender to touch. denies
nausea at the moment. call be in reach. care plan continues to be followed.
--- NOTE | 2023-08-26 20:01 | CONS.URO ---
Consultation
-
Performing Provider: Peffer
Reason for Consultation: Hydronephrosis
Medical History
History of Present Illness
Patient is an 88y F with PMH significant for hypothyroidism, diverticular disease, DM and chronic pain who presents to ED complaining of abdominal pain, N/V and fatigue.
Patient states that she has had abdominal pain intermittently for the past several days.
Last PM, she had several episodes of non-bloody, bilious emesis.
This AM nursing staff noted that she was fatigued / less animated than she usually is. She was noted to have diminished SpO2 on vitals and would easily become SOB with activity or with speaking.
Patient was sent to the ED for evaluation.
She complains of burning with urination and abdominal pain
No flank pain
Denies fevers
CT showed stable L hydronephrosis
She had a prior UTI admission 04/2023 where similar, nonobstructive appearing hydroureteronephrosis was noted
This appears stable on current CT
Urinalysis appeared c/w UTI
Past Medical History
Past Medical History: Other (Anemia of Chronic Disease Diverticular Disease Hypothyroidism GERD Rheumatoid Arthritis Anxiety / Depression Hypertension DM-II Peripheral Neuropathy Chronic Pain Syndrome)
Past Surgical History: Orthopedic
Social History
Tobacco: Non-smoker
Alcohol: None
Drug: None
Living: Halfway
Family History
Family History: Reviewed & Not Pertinent
Allergies/Home Medications
Allergies
Allergy/AdvReac Type Severity Reaction Status Date / Time
codeine Allergy Unknown Verified 06/24/23 17:42
erythromycin base Allergy Unknown Verified 06/24/23 17:42
Penicillins Allergy Unknown Verified 06/24/23 17:42
Home Medications
�Medication �Instructions �Recorded �Confirmed �Type
acetaminophen 500 mg tablet 1,000 mg PO BID Pain 05/30/22 08/25/23 History
(Tylenol Extra Strength)
carvedilol 25 mg tablet 25 mg PO BID Heart 05/30/22 08/25/23 History
disease/condition
fluticasone propionate 50 1 spray intranasal BID Allergies 05/30/22 08/25/23 History
mcg/actuation nasal
spray,suspension
ipratropium 0.5 mg-albuterol 3 mg 3 ml inhalation R Q6 PRN SOB/wheeze 05/30/22 08/25/23 History
(2.5 mg base)/3 mL nebulization
soln
levothyroxine 125 mcg tablet 125 mcg PO DAILY Thyroid 05/30/22 08/25/23 History
(Synthroid)
melatonin 3 mg tablet 3 mg PO HS Sleep 05/30/22 08/25/23 History
prednisone 2.5 mg tablet 2.5 mg PO DAILY Anti-inflammatory 05/30/22 08/25/23 History
trazodone 50 mg tablet 50 mg PO HS Sleep 05/30/22 08/25/23 History
insulin aspart U-100 100 unit/mL 7 units SC MEALS Diabetes 08/03/22 08/25/23 History
(3 mL) subcutaneous pen (Novolog
FlexPen U-100 Insulin aspart)
aluminum-mag hydroxide-simethicone 30 ml PO DAILY PRN indigestion 11/03/22 08/25/23 History
400 mg-400 mg-40 mg/5 mL oral susp
(Maalox Maximum Strength)
ferrous sulfate 325 mg (65 mg 325 mg PO DAILY Supplement 11/03/22 08/25/23 History
iron) tablet (FeroSul)
hydrocortisone 1 % topical cream 1 applic [place] BID Hemorrhoids 11/03/22 08/25/23 History
(Preparation H Hydrocortisone)
ibuprofen 200 mg capsule (Motrin 600 mg PO Q12H PRN Moderate Pain 11/03/22 08/25/23 History
IB)
potassium chloride 10 mEq 10 meq PO DAILY Electrolyte 11/03/22 08/25/23 History
tablet,extended release Repletion
acetaminophen 325 mg tablet 650 mg PO Q6H PRN mild pain 04/30/23 08/25/23 History
(Tylenol)
docusate sodium 100 mg capsule 200 mg PO DAILY Cough 04/30/23 08/25/23 History
(Colace)
gabapentin 100 mg capsule 100 mg PO BID Pain 04/30/23 08/25/23 History
insulin aspart U-100 100 unit/mL 0 - 7 sliding scale dose SC ACHS 05/01/23 08/25/23 History
(3 mL) subcutaneous pen (Novolog
FlexPen U-100 Insulin aspart)
methenamine hippurate 1 gram tablet 1 g PO DAILY #30 tabs 05/06/23 08/25/23 Rx
icosapent ethyl 1 gram capsule 2 g PO BID 06/24/23 08/25/23 History
(Vascepa)
insulin glargine 100 unit/mL (3 15 unit SC HS Diabetes 06/24/23 08/25/23 History
mL) subcutaneous pen (Lantus
Solostar U-100 Insulin)
pantoprazole 40 mg tablet,delayed 40 mg PO DAILY 06/24/23 08/25/23 History
release
polyethylene glycol 3350 17 gram 17 g PO DAILY PRN constipation 06/24/23 08/25/23 History
oral powder packet (Miralax)
sennosides 8.8 mg/5 mL oral syrup 8.8 mg PO Q12H PRN constipation 06/24/23 08/25/23 History
clonazepam 0.5 mg tablet 0.25 mg PO BID 08/25/23 08/25/23 History
tramadol 25 mg tablet 25 mg PO Q6H PRN severe pain 08/25/23 08/25/23 History
Physical Exam
Vital Signs
Vital Signs
Temp Pulse Resp BP Pulse Ox
97.3 F 77 16 151/67 98
08/26/23 17:25 08/26/23 17:25 08/26/23 17:25 08/26/23 17:25 08/26/23 17:25
Lab / Testing Results
Laboratory Results
08/26/23 05:44
08/26/23 05:44
Physical Exam
General: Well Developed, Well Nourished and No Apparent Distress
Respiratory: Non Labored Respirations
GI: Soft and Tender (midline low abdomen)
Genito-urinary: No Costovertebral Tend
Skin: Warm
Neuro: Awake and Alert
Psych: Agitated
Assessment / Plan
-
88F with abdominal pain, nausea, and vomiting with likely UTI and JOSELIN
CT showing chronic left hydroureteronephrosis
Note that CT report identifies incorrect laterality
- Abdominal pain unlikely due to stable hydronephrosis seen since at least 04/2023 and is likely due to ureteral reflux without piotr obstruction
- JOSELIN likely prerenal and responded well to fluids
- Due to lack of sepsis, no intervention needed at this time
- Treat UTI - culture may be negative as this was sent after starting antibiotics. If Cx negative can treat empirically with abx for total 10 days for complicated UTI
- Patient did not follow up outpatient after last hospitalization for hematuria and hydronephrosis. Reviewed instruction to follow up today with patient and her daughter
Data Reviewed
-
CT Scan: Image personally visualized and interpreted
Lab Data: Labs Reviewed
[2023-08-26 21:36] LABS: Glucose - Point of Care 211 mg/dl (70-99)
[2023-08-26] MEDS: SENOKOT 17.1999999999999993 MG PO (22:08)
[2023-08-26] MEDS: DESYREL 50 MG PO (22:10)
[2023-08-26] MEDS: LANTUS 0.0800000000000000017 UNITS SC (22:18)
[2023-08-27] MEDS: NSS 1000 IV ×2 (01:16→14:06)
[2023-08-27] MEDS: ROCEPHIN 1000 MG IV (01:16)
[2023-08-27] MEDS: FLAGYL 500 MG 100 IV ×3 (01:16→15:23)
[2023-08-27] MEDS: STERILE WATER FOR INJECTION 10 ML IV (01:17)
[2023-08-27 02:52] VITALS: BP 128/59
[2023-08-27] MEDS: SYNTHROID 125 MCG PO (05:32)
[2023-08-27 06:00] VITALS: BMI 29.4
[2023-08-27 07:08] LABS: Hematocrit 30.2 % (37.0-47.0); Mean Corp Hgb Conc. 33.1 g/dL (33.0-37.0); Mean Corpuscular Hgb 30.8 pg (27.0-31.0); Mean Corpuscular Volume 92.9 fL (81.0-99.0); Red Blood Cell Count 3.25 10^6/uL (4.20-5.40); Red Cell Dist. Width 12.9 % (11.5-14.5); White Blood Cell Count 5.8 10^3/uL (4.8-10.8)
[2023-08-27 07:32] LABS: ALT (SGPT) 13 U/L (0-35); AST (SGOT) 18 U/L (14-36); Albumin 3.1 g/dl (3.5-5.0); Alkaline Phosphatase 56 U/L (38-126); Blood Urea Nitrogen 44 mg/dl (7-17); Calcium 8.5 mg/dl (8.4-10.2); Carbon Dioxide 26 mmol/L (22-30); Chloride 109 mmol/L (98-107); Estimated Creatinine Clearance 59 ml/min; Glucose 154 mg/dl (70-99); Potassium 3.8 mmol/L (3.5-5.1); Sodium 141 mmol/L (135-145); Total Bilirubin 0.5 mg/dl (0.2-1.3); Total Protein 5.6 g/dl (6.3-8.2); eGFR > 60.00
[2023-08-27 07:44] LABS: Glucose - Point of Care 180 mg/dl (70-99)
--- NOTE | 2023-08-27 08:05 | W.PN.URO.CBU ---
Today's Communication / Plan
-
await ucx
OR wednesday
Assessment / Plan
-
recent admit with hematuria/UTI/retention
chronic abd pain
stable left hydro
no hematuria
ua not consistent with UTI- await cx
stable left hydro- likely secondary to reflux/high pressure bladder- do not suspect at this point it is related to migrating pain
reviewed with med team and daughter
plan for OR on wednesday for cysto/retrograde/ureteroscopy and possible bx
risks, benefits, alternatives and disabilities reviewed
Diagnosis
-
Date of Service: August 27, 2023
-
Patient Diagnosis:
left hydro
neurogenic bladder
hx of hematuria and UTI
Subjective
-
pt confused this am
still c/o of abd pain
incontinent of urine- pvr by cath was only 150cc
no hematuria
ucx pending
Objective
-
Vital Signs
Temp Pulse Resp BP Pulse Ox
98.4 F 72 18 128/59 97
08/27/23 02:52 08/27/23 02:52 08/27/23 02:52 08/27/23 02:52 08/27/23 02:52
Intake and Output
08/26/23 08/27/23 08/28/23
06:59 06:59 06:59
Intake Total 590 / 590
Output Total 400 / 400
Balance 190 / 190
Intake:
Oral fluids 415 / 415
IV fluids (Total) 175 / 175
Output:
Urine, Voided 400 / 400
Other:
How many times incontinent 1
MODERATE amount urine
How many times incontinent 5
SATURATED amount urine
Laboratory Results
08/27/23 06:28
08/27/23 06:28
Review of Systems
-
Unable to obtain full review of systems at this time due to: Dementia
Physical Exam
-
General - confused, but does not appear to be in any acute distress
Abdomen - mild distended- tender to palpation over LLQ- no rebound or guarding
[2023-08-27 08:07] VITALS: BP 145/66
[2023-08-27 09:26] LABS: Mean Platelet Volume 10.6 fL (7.4-10.4); Platelet Count 114 10^3/uL (130-400)
[2023-08-27] MEDS: NOVOLOG FLEXPEN-LOW RESISTANCE 1 UNITS SC (10:25)
[2023-08-27] MEDS: COREG 25 MG PO ×2 (10:26→21:36)
[2023-08-27] MEDS: NEURONTIN 100 MG PO ×2 (10:26→20:33)
[2023-08-27] MEDS: DELTASONE 2.5 MG PO (10:27)
[2023-08-27] MEDS: KLONOPIN 0.25 MG PO ×2 (10:27→20:33)
[2023-08-27] MEDS: PROTONIX IV 40 MG IV ×2 (10:29→21:47)
[2023-08-27] MEDS: NSS (PRESERVATIVE FREE) 10 ML IV ×2 (10:30→21:47)
[2023-08-27 11:45] LABS: Glucose - Point of Care 259 mg/dl (70-99)
--- NOTE | 2023-08-27 13:09 | PN.CDI ---
CDI
- -
CDI:
Physician Documentation Request
Admit Date: 08/25/23 22:44
Dear Doctor Brooke,
Clinical Indicators:
Patient admitted with lethargy and abdominal pain.
08/25 RN skin/wound assessment: Right Heel Deep Tissue Pressure Injury, POA
Physician documentation of the type and location of wounds is required for compliant documentation. Based on the above clinical findings and your assessment, please provide the following in your progress note:
1. Location of the ulcer/wound, including laterality.
2. Type (etiology) of ulcer/wound:
- Pressure (decubitus) ulcer
- Other, please specify
- Unable to determine
3. If a pressure ulcer, please also include the stage* of the ulcer:
- Stage 1 - Skin intact, non-blanchable redness
- Stage 2 - Partial thickness loss of dermis, includes intact or open blister
- Stage 3 - Full thickness tissue not including bone, tendon or muscle
- Stage 4 - Full thickness tissue loss, including exposed bone, tendon or muscle
- Unstageable - Full thickness loss in which the base of the ulcer is covered by slough (yellow, fragoso, rodriguez, green or brown) and/or eschar (fragoso, brown or black) in the wound bed.
- Unable to determine
Use of terms such as suspected, likely, concern for, or probable (associated with a specific diagnosis that is being evaluated, monitored, or treated as if it exists) are acceptable and can be coded in the inpatient setting, when documented at the
time of discharge.
Thank you,
SANAM Tsai RN
CDI Specialist
available via tiger text
Please use your independent medical judgment in providing your response.
*Source: National Pressure Ulcer Advisory Panel (NPUAP)
--- NOTE | 2023-08-27 13:12 | W.PN.HOSP.TC ---
Addendum entered and electronically signed by Zohaib Cox MD 08/27/23 15:36:
Right Heel Deep Tissue Pressure Injury, POA
Original Note:
Today's Communication/Plan
-
monitor bmp
IVF
norovirus, stool cultures
OR wednesday
Abx, incentive kasandra
Assessment / Plan
Assessment / Plan
General: Other (88y F in mild distress due to abdominal pain, dyspnea.)
HEENT: Moist mucous membranes and PERRLA
Respiratory: Other (Decreased at bases - otherwise clear.)
Cardiac: S1/S2 and Regular Rhythm; No Murmur
GI: Other (Softly distended. Exquisitely tender - seemingly [id number] to exam. Pos BS.)
Musculoskeletal: No Clubbing, No Cyanosis and No Edema
Neuro: AO x 3
A/P: Patient is an 88y F with PMH significant for anxiety, hypothyroidism, DM-II and chronic pain who presents to ED complaining of lethargy, abdominal pain and N/V.
#Abdominal Pain, N/V
-possibly 2/2 to hydronephrosis although having diarrhea; patient does complain of generalized pain and suspect may be anxiety/psych related
-CT AP with no obvious colitis
-F/u Stool cultures, norovirus
-Minced and Moist diet
#Generalized pain
-patient has palpable pain throughout the whole body
-suspect peripheral neuropathy v psych related
-f/u outpatient
#Acute Hypoxemic Respiratory Insufficiency
- Patient with reported SpO2 = 97% at [place]; Now in 90s on supplemental oxygen.
- CXR unremarkable.
- Certainly possible that aspiration pneumonia / pneumonitis occurred during N/V episodes
- Abx as noted above - empiric
- Speech therapy evaluation. Aspiration precautions.
- Nebs / mucolytics. Follow for clinical changes.
- F/u ECHO: 55-60%;
-Karey kasandra
-wean as tolerated - improving
#JOSELIN
# Possible secondary to hydronephrosis although JOSELIN resolved; may be related to dehydration/prerenal
-resolved
� Follow-up urology recommendations
-urine cultures negative, no evidence of UTI
#Moderate left hydronephrosis and left hydroureter, chronic
� Urology consulted
�follow-up recommendations
-plan on investigation on Wednesday 08/30
#Hypokalemia
-monitor and replete
#7 mm minimally spiculated pulmonary nodule
-f/u CT imaging in 3 months with pulm
Heme Positive Stool
- Noted to have heme occult positive stool in the ED.
- IV PPI BID for now.
- No evidence of significant anemia, hemodynamic instability, etc.
- Follow for changes in H&H.
DM-II
- Stable. Continue basal : bolus insulin regimen.
- Update A1C - 8.6
Chronic Pain Syndrome
Anxiety / Depression
- Question degree of current abdominal pain is related to her chronic syndrome?
- Need to exclude other, more acute causes as noted above.
- Continue supportive care / symptom control.
DVT Prophylaxis: SCDs
Code Status: DNR
Total time spent on today's encounter was 55 minutes which included time spent in counseling the patient/family regarding diagnosis and treatment plan as listed above, goals of care, and symptom management. Case was discussed with nursing staff,
specialists, and care coordinators/case management. All labs and imaging personally reviewed by me. Remainder the time spent in detailed review of previous records, lab data, imaging, and other medical provider documentation.
Anticipated Discharge: > 48 hours
Subjective/Interval History
-
Date of Service: August 27, 2023
having frequent semi-formed bms
Objective Data
-
Labs:
Laboratory Results
08/27/23
06:28
WBC 5.8
Hgb 10.0 L
Hct 30.2 L
Plt Count 114 L
Sodium 141
Potassium 3.8
Chloride 109 H
Carbon Dioxide 26
BUN 44 H
Creatinine 0.6
Glucose 154 H
Calcium 8.5
Total Bilirubin 0.5
AST 18
ALT 13
Alkaline Phosphatase 56
Vital Signs:
Vital Signs
Temp Pulse Resp BP Pulse Ox
97.8 F 73 20 150/61 98
08/27/23 08:07 08/27/23 10:26 08/27/23 08:07 08/27/23 10:26 08/27/23 08:07
I&O
08/26/23 08/27/23 08/28/23
06:59 06:59 06:59
Intake Total 1790 / 1790
Output Total 400 / 400
Balance 1390 / 1390
Review of Systems
-
History Source: Patient
All other systems: Not reviewed unless documented
Physical Exam
-
General: Well Developed, Well Nourished, Comfortable, Conversant and Other (anxious)
HEENT: Normocephalic, Atraumatic and Moist Mucous Membranes
Respiratory: Clear to Auscultation and Non Labored Respirations; Negative Accessory Resp Muscle Use
Cardiac: Regular Rhythm and S1/S2
GI: Soft, Nontender, Nondistended and Normal Bowel Sounds
Rectal: Deferred by Provider
Musculoskeletal: No Clubbing, No Cyanosis and No Edema
Skin: Negative Rash
Neuro: Awake
Psych: Calm and Intact Judgement/Insight (somewhat)
Data Reviewed
-
Diagnostic Radiology: Image personally visualized and interpreted and Report Reviewed by me
CT Scan: Image personally visualized and interpreted and Report Reviewed by me
Labs: Labs Reviewed by me
[2023-08-27] MEDS: NOVOLOG FLEXPEN-LOW RESISTANCE 3 UNITS SC ×2 (13:48→17:11)
[2023-08-27 14:17] VITALS: BMI 29.4
[2023-08-27 15:28] VITALS: BP 150/77
[2023-08-27 16:00] VITALS: BP 161/74
[2023-08-27 17:01] LABS: Glucose - Point of Care 259 mg/dl (70-99)
[2023-08-27 19:30] VITALS: BP 162/83
[2023-08-27] MEDS: ULTRAM 25 MG PO (20:33)
[2023-08-27 21:34] LABS: Glucose - Point of Care 161 mg/dl (70-99)
[2023-08-27] MEDS: LANTUS 0.0800000000000000017 UNITS SC (21:37)
[2023-08-27] MEDS: SENOKOT 17.1999999999999993 MG PO (21:38)
[2023-08-27] MEDS: DESYREL 50 MG PO (21:39)
[2023-08-27 23:00] VITALS: BP 105/61
[2023-08-28] MEDS: STERILE WATER FOR INJECTION 10 ML IV (00:20)
[2023-08-28] MEDS: ROCEPHIN 1000 MG IV (00:21)
[2023-08-28] MEDS: FLAGYL 500 MG 100 IV ×2 (00:22→09:58)
[2023-08-28] MEDS: NSS 1000 IV (01:31)
[2023-08-28 03:00] VITALS: BP 145/68
[2023-08-28 06:00] VITALS: BMI 29.0
[2023-08-28] MEDS: SYNTHROID 125 MCG PO (06:42)
[2023-08-28 08:39] LABS: Glucose - Point of Care 210 mg/dl (70-99)
[2023-08-28 08:42] LABS: Hematocrit 36.1 % (37.0-47.0); Hemoglobin 11.5 g/dL (12.0-16.0); Mean Corp Hgb Conc. 31.9 g/dL (33.0-37.0); Mean Corpuscular Hgb 30.4 pg (27.0-31.0); Mean Corpuscular Volume 95.5 fL (81.0-99.0); Mean Platelet Volume 10.6 fL (7.4-10.4); Platelet Count 153 10^3/uL (130-400); Red Blood Cell Count 3.78 10^6/uL (4.20-5.40); Red Cell Dist. Width 12.9 % (11.5-14.5); White Blood Cell Count 10.9 10^3/uL (4.8-10.8)
[2023-08-28] MEDS: DUONEB 3 ML INH ×2 (09:45→18:37)
[2023-08-28] MEDS: PROTONIX IV 40 MG IV ×2 (09:57→21:25)
[2023-08-28] MEDS: NSS (PRESERVATIVE FREE) 10 ML IV ×2 (09:57→21:25)
[2023-08-28] MEDS: LASIX 20 MG IV ×2 (09:58→15:21)
[2023-08-28 10:28] LABS: Venous Blood Gas B.E. -4.4 mmol/L (-4 to +4); Venous Blood Gas HCO3 24.1 mmol/L (22-27); Venous Blood Gas O2 Sat % 99.8 %; Venous Blood Gas pCO2 59 mmHg (35-48); Venous Blood Gas pH 7.22 (7.32-7.43); Venous Blood Gas pO2 206 mmHg (30-50)
[2023-08-28] MEDS: NOVOLOG FLEXPEN-LOW RESISTANCE SC ×2 (10:31→16:52)
[2023-08-28] MEDS: DELTASONE PO (10:31)
[2023-08-28] MEDS: KLONOPIN PO (10:31)
[2023-08-28] MEDS: COREG PO (10:31)
[2023-08-28] MEDS: NEURONTIN PO (10:32)
[2023-08-28 10:43] LABS: ALT (SGPT) 15 U/L (0-35); AST (SGOT) 19 U/L (14-36); Albumin 3.5 g/dl (3.5-5.0); Alkaline Phosphatase 74 U/L (38-126); Blood Urea Nitrogen 18 mg/dl (7-17); Calcium 8.3 mg/dl (8.4-10.2); Carbon Dioxide 24 mmol/L (22-30); Chloride 112 mmol/L (98-107); Estimated Creatinine Clearance 59 ml/min; Glucose 210 mg/dl (70-99); Potassium 3.9 mmol/L (3.5-5.1); Sodium 142 mmol/L (135-145); Total Bilirubin 0.4 mg/dl (0.2-1.3); Total Protein 6.2 g/dl (6.3-8.2); eGFR > 60.00
[2023-08-28 11:23] LABS: NT-proBNP 8100 pg/ml
[2023-08-28 11:30] VITALS: BP 190/92
[2023-08-28] MEDS: APRESOLINE 10 MG IV (13:12)
[2023-08-28] MEDS: NOVOLOG FLEXPEN-LOW RESISTANCE 3 UNITS SC (13:17)
[2023-08-28 13:23] LABS: Glucose - Point of Care 243 mg/dl (70-99)
--- NOTE | 2023-08-28 14:07 | W.PN.HOSP.TC ---
Today's Communication/Plan
-
stop abx and monitor
start iv lasix
wean o2
supportive care for norovirus, stop ivf due to hypoxia
Cysto and urological investigation 08/30
Assessment / Plan
Assessment / Plan
General: Other (88y F in mild distress due to abdominal pain, dyspnea.)
HEENT: Moist mucous membranes and PERRLA
Respiratory: Other (Decreased at bases - otherwise clear.)
Cardiac: S1/S2 and Regular Rhythm; No Murmur
GI: Other (Softly distended. Exquisitely tender - seemingly [id number] to exam. Pos BS.)
Musculoskeletal: No Clubbing, No Cyanosis and No Edema
Neuro: AO x 3
A/P: Patient is an 88y F with PMH significant for anxiety, hypothyroidism, DM-II and chronic pain who presents to ED complaining of lethargy, abdominal pain and N/V.
#Abdominal Pain, N/V/Diarrhea
#Norovirus
-acute on chronic (has generalized pain everywhere)
-diarrhea - norovirus positive
-Minced and Moist diet
#Generalized pain
-patient has palpable pain throughout the whole body
-suspect peripheral neuropathy v psych related
-f/u outpatient
#Acute Hypoxemic and Hypercapnic Respiratory Insufficiency
- Patient with reported SpO2 = 97% at [place]; Now in 90s on supplemental oxygen.
-I suspect 2/2 to Acute on chronic HFpEF
-ProBNP 8100
-IV lasix today
-Cont 40mg IV lasix daily and monitor
-stop abx and monitor
-monitor BMP
-minced and moist food
- Nebs / mucolytics. Follow for clinical changes.
- F/u ECHO: 55-60%;
-Karey kasandra
-wean as tolerated - improving
#JOSELIN
# Possible secondary to hydronephrosis although JOSELIN resolved;
-resolved
� Follow-up urology recommendations
-urine cultures negative, no evidence of UTI
-plan to go to OR 08/30 for cysto and investigation
#Moderate left hydronephrosis and left hydroureter, chronic
� Urology consulted
�follow-up recommendations
-plan on investigation on Wednesday 08/30
#Hypokalemia
-monitor and replete
#7 mm minimally spiculated pulmonary nodule
-f/u CT imaging in 3 months with pulm
Heme Positive Stool
- Noted to have heme occult positive stool in the ED.
- IV PPI BID for now.
- No evidence of significant anemia, hemodynamic instability, etc.
- Follow for changes in H&H.
DM-II
- Stable. Continue basal : bolus insulin regimen.
- Update A1C - 8.6
Chronic Pain Syndrome
Anxiety / Depression
- Question degree of current abdominal pain is related to her chronic syndrome?
- Need to exclude other, more acute causes as noted above.
- Continue supportive care / symptom control.
DVT Prophylaxis: Trial HSQ
Code Status: DNR
Total time spent on today's encounter was 52 minutes which included time spent in counseling the patient/family regarding diagnosis and treatment plan as listed above, goals of care, and symptom management. Case was discussed with nursing staff,
specialists, and care coordinators/case management. All labs and imaging personally reviewed by me. Remainder the time spent in detailed review of previous records, lab data, imaging, and other medical provider documentation.
Anticipated Discharge: > 48 hours
Subjective/Interval History
-
Date of Service: August 28, 2023
hypoxic and lethargic this am. most likely fluid overload. fluids stopped; lasix given and improvement in mental status and hypoxia.
Objective Data
-
Labs:
Laboratory Results
08/28/23
07:43
WBC 10.9 H
Hgb 11.5 L
Hct 36.1 L
Plt Count 153 D
Sodium 142
Potassium 3.9
Chloride 112 H
Carbon Dioxide 24
BUN 18 H
Creatinine 0.5 L
Glucose 210 H
Calcium 8.3 L
Total Bilirubin 0.4
AST 19
ALT 15
Alkaline Phosphatase 74
Vital Signs:
Vital Signs
Temp Pulse Resp BP Pulse Ox
98.5 F 80 18 190/92 92
08/28/23 11:30 08/28/23 11:30 08/28/23 11:30 08/28/23 13:12 08/28/23 11:30
I&O
08/27/23 08/28/23 08/29/23
06:59 06:59 06:59
Intake Total 1790 / 1790 1919
Output Total 400 / 400
Balance 1390 / 1390 1919
Review of Systems
-
History Source: Patient
All other systems: Not reviewed unless documented
Physical Exam
-
General: Well Developed, Well Nourished, Comfortable, Conversant and Other (anxious)
HEENT: Normocephalic, Atraumatic and Moist Mucous Membranes
Respiratory: Clear to Auscultation and Non Labored Respirations; Negative Accessory Resp Muscle Use
Cardiac: Regular Rhythm and S1/S2
GI: Soft, Nontender, Nondistended and Normal Bowel Sounds
Rectal: Deferred by Provider
Musculoskeletal: No Clubbing, No Cyanosis and No Edema
Skin: Negative Rash
Neuro: Awake
Psych: Calm and Intact Judgement/Insight (somewhat)
Data Reviewed
-
Diagnostic Radiology: Image personally visualized and interpreted and Report Reviewed by me
CT Scan: Image personally visualized and interpreted and Report Reviewed by me
Labs: Labs Reviewed by me
[2023-08-28 14:10] VITALS: BP 168/79
[2023-08-28 15:15] VITALS: BP 164/65
--- NOTE | 2023-08-28 16:39 | W.PN.UPDATE ---
Update Note
Progress Note Update
Admitted w/ hematuria, UTI, urinary retention
Stable left hydronephrosis - likely secondary to reflux/high pressure bladder
Internal history:
Hematuria resolved, UA not indicative of UTI
08/24 UCx => NG
Plan:
- OR Tues 08/30 for cysto/retrograde pyelogram/ureteroscopy/possible bx
- NPO@ME Mon 08/29
[2023-08-28 16:48] LABS: Glucose - Point of Care 212 mg/dl (70-99)
--- NOTE | 2023-08-28 18:01 | PTCARENOTE ---
Upon first round, pt found with change in mental status from report. PT lethargic and stuporous with inability to keep eyes open but does open eyes to voice. PT was AAOx3 for last RN. Pulse ox was 85% on 2L with audible coarse rales, tachypnea
28-32, shallow breathing, large disteneded abdomen with +2 pitting BLE edema. PT had IV NSS at 100 ml infusing. Lungs with anterior wheezing. and coarse rales in posterior bases. She co SOB and is visibly dyspnic at rest. MD made aware, Stat CXR
obtained and BNP obtaines. BNP 8100 and CXR with pulmonary edema, PT given 40 ml of IV lasix and oxygen increased to 4 liters 94-95%. PT more alert after but not speaking, she is whispering. PT went for stat CT head which was negative. I attempted
to provide clear liquids to pt at an upright position. she was unable to swallow. aware and i held her lunch and dinner try. I attempted to re evaluate if she would be safe to swallow, but she had trouble. Speech consult placed
[2023-08-28 20:01] VITALS: BP 158/92
[2023-08-28] MEDS: COREG 25 MG PO (21:23)
[2023-08-28] MEDS: HEPARIN 5000 UNITS SC (21:24)
[2023-08-28] MEDS: KLONOPIN 0.25 MG PO (21:24)
[2023-08-28] MEDS: NEURONTIN 100 MG PO (21:25)
[2023-08-28] MEDS: SENOKOT 17.1999999999999993 MG PO (21:26)
[2023-08-28] MEDS: DESYREL 50 MG PO (21:26)
[2023-08-28 21:37] LABS: Glucose - Point of Care 316 mg/dl (70-99)
[2023-08-28] MEDS: LANTUS 0.0800000000000000017 UNITS SC (21:41)
[2023-08-28 23:51] VITALS: BP 162/71
[2023-08-29 02:46] LABS: Glucose - Point of Care 217 mg/dl (70-99)
[2023-08-29 02:56] VITALS: BP 160/65
[2023-08-29] MEDS: SYNTHROID 125 MCG PO (06:08)
[2023-08-29] MEDS: ULTRAM 25 MG PO ×2 (06:29→22:43)
[2023-08-29 06:38] VITALS: BMI 27.5
[2023-08-29 07:00] VITALS: BP 173/72
[2023-08-29] MEDS: KLONOPIN 0.25 MG PO ×2 (08:17→22:50)
[2023-08-29] MEDS: NEURONTIN 100 MG PO ×2 (08:17→22:50)
[2023-08-29 08:18] LABS: Glucose - Point of Care 272 mg/dl (70-99)
[2023-08-29] MEDS: COREG 25 MG PO ×2 (08:18→22:35)
[2023-08-29] MEDS: DELTASONE 2.5 MG PO (08:18)
[2023-08-29] MEDS: NOVOLOG FLEXPEN-LOW RESISTANCE 3 UNITS SC (08:18)
[2023-08-29] MEDS: TYLENOL 650 MG PO (08:18)
[2023-08-29 08:19] LABS: Hematocrit 35.6 % (37.0-47.0); Hemoglobin 11.8 g/dL (12.0-16.0); Mean Corp Hgb Conc. 33.1 g/dL (33.0-37.0); Mean Corpuscular Hgb 30.3 pg (27.0-31.0); Mean Corpuscular Volume 91.5 fL (81.0-99.0); Mean Platelet Volume 9.7 fL (7.4-10.4); Platelet Count 172 10^3/uL (130-400); Red Blood Cell Count 3.89 10^6/uL (4.20-5.40); Red Cell Dist. Width 12.9 % (11.5-14.5); White Blood Cell Count 9.7 10^3/uL (4.8-10.8)
[2023-08-29] MEDS: LASIX 40 MG IV (08:19)
[2023-08-29] MEDS: HEPARIN 5000 UNITS SC ×2 (08:19→22:49)
[2023-08-29] MEDS: PROTONIX IV 40 MG IV ×2 (08:19→22:56)
[2023-08-29] MEDS: NSS (PRESERVATIVE FREE) 10 ML IV ×2 (08:20→22:51)
[2023-08-29 09:16] LABS: ALT (SGPT) 16 U/L (0-35); AST (SGOT) 19 U/L (14-36); Albumin 3.3 g/dl (3.5-5.0); Alkaline Phosphatase 77 U/L (38-126); Blood Urea Nitrogen 24 mg/dl (7-17); Calcium 8.9 mg/dl (8.4-10.2); Carbon Dioxide 29 mmol/L (22-30); Chloride 106 mmol/L (98-107); Estimated Creatinine Clearance 49 ml/min; Glucose 231 mg/dl (70-99); Potassium 3.4 mmol/L (3.5-5.1); Sodium 145 mmol/L (135-145); Total Bilirubin 0.7 mg/dl (0.2-1.3); Total Protein 5.9 g/dl (6.3-8.2); eGFR > 60.00
[2023-08-29 11:43] VITALS: BP 142/90
--- NOTE | 2023-08-29 12:09 | W.PN.HOSP.TC ---
Today's Communication/Plan
-
cont iv lasix, monitor bmp
k repletion
wean o2
speech eval
Urological intervention Tueday
Assessment / Plan
Assessment / Plan
General: Other (88y F in mild distress due to abdominal pain, dyspnea.)
HEENT: Moist mucous membranes and PERRLA
Respiratory: Other (Decreased at bases - otherwise clear.)
Cardiac: S1/S2 and Regular Rhythm; No Murmur
GI: Other (Softly distended. Exquisitely tender - seemingly [id number] to exam. Pos BS.)
Musculoskeletal: No Clubbing, No Cyanosis and No Edema
Neuro: AO x 3
A/P: Patient is an 88y F with PMH significant for anxiety, hypothyroidism, DM-II and chronic pain who presents to ED complaining of lethargy, abdominal pain and N/V.
#Abdominal Pain, N/V/Diarrhea
#Norovirus
-acute on chronic (has generalized pain everywhere)
-diarrhea - norovirus positive
-Minced and Moist diet; speech eval today after acute respiratory failure yesterday - NPO until then
#Generalized pain
-patient has palpable pain throughout the whole body
-suspect peripheral neuropathy v psych related
-f/u outpatient
#Acute Hypoxemic and Hypercapnic Respiratory Insufficiency
- Patient with reported SpO2 = 97% at [place]; Now in 90s on supplemental oxygen.
-I suspect 2/2 to Acute on chronic HFpEF
-ProBNP 8100
-Cont 40mg IV lasix daily and monitor
-stop abx and monitor
-monitor BMP
-minced and moist food
- Nebs / mucolytics. Follow for clinical changes.
- F/u ECHO: 55-60%;
-Inc kasandra
-wean 02 as tolerated - improving
#JOSELIN
# Possible secondary to hydronephrosis although JOSELIN resolved;
-resolved
� Follow-up urology recommendations
-urine cultures negative, no evidence of UTI
-plan to go to OR 08/30 for cysto and investigation
#Moderate left hydronephrosis and left hydroureter, chronic
� Urology consulted
�follow-up recommendations
-plan on investigation on Wednesday 08/30
#Hypokalemia
-monitor and replete
#7 mm minimally spiculated pulmonary nodule
-f/u CT imaging in 3 months with pulm
Heme Positive Stool
- Noted to have heme occult positive stool in the ED.
- IV PPI BID for now.
- No evidence of significant anemia, hemodynamic instability, etc.
- Follow for changes in H&H.
DM-II
- Stable. Continue basal : bolus insulin regimen.
- Update A1C - 8.6
Chronic Pain Syndrome
Anxiety / Depression
- Question degree of current abdominal pain is related to her chronic syndrome?
- Need to exclude other, more acute causes as noted above.
- Continue supportive care / symptom control.
DVT Prophylaxis: Trial HSQ
Code Status: DNR
Anticipated Discharge: > 48 hours
Subjective/Interval History
-
Date of Service: August 29, 2023
doing better today, much more alert and verbalizing closer to baseline, although still possible aspiration risk
Objective Data
-
Labs:
Laboratory Results
08/29/23
08:11
WBC 9.7
Hgb 11.8 L
Hct 35.6 L
Plt Count 172
Sodium 145
Potassium 3.4 L
Chloride 106
Carbon Dioxide 29
BUN 24 H
Creatinine 0.7
Glucose 231 H
Calcium 8.9
Total Bilirubin 0.7
AST 19
ALT 16
Alkaline Phosphatase 77
Vital Signs:
Vital Signs
Temp Pulse Resp BP Pulse Ox
99.1 F 80 18 142/90 94
08/29/23 11:43 08/29/23 11:43 08/29/23 11:43 08/29/23 11:43 08/29/23 11:43
I&O
08/28/23 08/29/23 08/30/23
06:59 06:59 06:59
Intake Total 1919 240 / 240
Balance 1919 240 / 240
Review of Systems
-
History Source: Patient
All other systems: Not reviewed unless documented
Physical Exam
-
General: Well Developed, Well Nourished, Comfortable and Other
HEENT: Normocephalic, Atraumatic and Moist Mucous Membranes
Respiratory: Clear to Auscultation and Non Labored Respirations; Negative Accessory Resp Muscle Use
Cardiac: Regular Rhythm and S1/S2
GI: Soft, Nontender, Nondistended and Normal Bowel Sounds
Rectal: Deferred by Provider
Musculoskeletal: No Clubbing, No Cyanosis and No Edema
Skin: Negative Rash
Neuro: Awake
Psych: Calm and Intact Judgement/Insight (somewhat)
Data Reviewed
-
Diagnostic Radiology: Image personally visualized and interpreted and Report Reviewed by me
CT Scan: Image personally visualized and interpreted and Report Reviewed by me
Labs: Labs Reviewed by me
[2023-08-29 12:17] LABS: Glucose - Point of Care 215 mg/dl (70-99)
[2023-08-29] MEDS: KCL 270 MEQ IV (12:50)
[2023-08-29] MEDS: NOVOLOG FLEXPEN-LOW RESISTANCE 2 UNITS SC (12:54)
--- NOTE | 2023-08-29 13:04 | PTCARENOTE ---
Pt alert whispering only. She is alertx2-3 anxious. I assessed her swallowing small amount of thins. She had right sided thick drool noted on her right chin remaining from previous shift, it was cleaned. Pt at 90 degrees coughed with water. I
crushed her meds and she tolerated her meds in apple sauce without any issue. Speech sa patient and recommended pureed wtih things. notified, no orders as of yet. Pt remains NPO and on aspiration precautions.
--- NOTE | 2023-08-29 13:41 | PTOTSP ---
Speech Therapy
08/27 update: coughing and AMS, unable to swallow with RN.
Swallowing Function: Patient has been asking RN for PO all morning, per RN. HUMAN RESOURCES RECRUITER trialed ice chips, thins via tsp, cup, and straw, and puree in which patient appeared to tolerate all of the presentations as she did not exhibit any overt clinical s/sx
of aspiration or difficulty with mastication/ manipulation. Patient denied any dysphagia complaints. No further PO trials were administered given her apparent wax/wane alertness.
Given the above, recommend trial of IDDSI Level 4; puree solids and thin liquids.
Recommendations:
1) IDDSI Level 4; puree solids and thin liquids
2) Small, single bites and sips; alternated
3) Aspiration precautions
4) Medications as tolerated (likely in puree)
5) PO only when alert
6) Supervision with PO
Plan: HUMAN RESOURCES RECRUITER will continue to follow; pending hospitalization.
[2023-08-29 15:00] VITALS: BP 148/71
[2023-08-29 16:49] LABS: Glucose - Point of Care 313 mg/dl (70-99)
[2023-08-29] MEDS: NOVOLOG FLEXPEN-LOW RESISTANCE 4 UNITS SC (17:08)
--- NOTE | 2023-08-29 17:32 | PTCARENOTE ---
[facility] IV ordered. When i went to hang it, the line blew. IVT called. New IV started in left hand. IVT walked out of room and then the hep lock appeared to blow and was swollen and bruised with pain. I disconnectecd it from the [facility] and capped the
line. I called IVT and am awaiting a call back from them .
[2023-08-29 19:00] VITALS: BP 151/98
[2023-08-29 21:44] LABS: Glucose - Point of Care 255 mg/dl (70-99)
[2023-08-29] MEDS: DESYREL 50 MG PO (22:34)
[2023-08-29] MEDS: SENOKOT 17.1999999999999993 MG PO (22:57)
[2023-08-29] MEDS: LANTUS 0.0800000000000000017 UNITS SC (22:57)
[2023-08-29 23:00] VITALS: BP 166/122; BP 210/115; BP 216/114
[2023-08-30 03:00] VITALS: BP 178/92
[2023-08-30 03:30] VITALS: BMI 28.1
[2023-08-30 05:59] LABS: Hemoglobin 11.2 g/dL (12.0-16.0); Mean Corp Hgb Conc. 32.9 g/dL (33.0-37.0); Mean Corpuscular Hgb 30.2 pg (27.0-31.0); Mean Corpuscular Volume 91.6 fL (81.0-99.0); Mean Platelet Volume 10.3 fL (7.4-10.4); Platelet Count 190 10^3/uL (130-400); Red Blood Cell Count 3.71 10^6/uL (4.20-5.40); Red Cell Dist. Width 12.8 % (11.5-14.5); White Blood Cell Count 8.6 10^3/uL (4.8-10.8)
[2023-08-30 06:33] LABS: ALT (SGPT) 16 U/L (0-35); AST (SGOT) 21 U/L (14-36); Albumin 3.1 g/dl (3.5-5.0); Alkaline Phosphatase 64 U/L (38-126); Blood Urea Nitrogen 26 mg/dl (7-17); Calcium 8.9 mg/dl (8.4-10.2); Carbon Dioxide 28 mmol/L (22-30); Chloride 112 mmol/L (98-107); Estimated Creatinine Clearance 50 ml/min; Glucose 217 mg/dl (70-99); Sodium 145 mmol/L (135-145); Total Bilirubin 0.7 mg/dl (0.2-1.3); Total Protein 5.8 g/dl (6.3-8.2); eGFR > 60.00
[2023-08-30] MEDS: SYNTHROID 125 MCG PO (06:43)
[2023-08-30 07:30] VITALS: BP 185/98
[2023-08-30 08:13] LABS: Glucose - Point of Care 249 mg/dl (70-99)
--- NOTE | 2023-08-30 08:45 | W.PN.UPDATE ---
Update Note
Progress Note Update
pt stable over the weekend
spoke to daughter- is in agreement with OR tomorrow
npo after midnight- hold heparin
[2023-08-30 09:21] VITALS: BP 182/94
[2023-08-30] MEDS: NSS (PRESERVATIVE FREE) 10 ML IV ×2 (09:23→21:50)
[2023-08-30] MEDS: PROTONIX IV 40 MG IV ×2 (09:23→21:50)
[2023-08-30] MEDS: KLONOPIN 0.25 MG PO ×2 (09:23→21:47)
[2023-08-30] MEDS: APRESOLINE 10 MG IV (09:24)
[2023-08-30] MEDS: LASIX 40 MG IV ×2 (09:24→16:28)
[2023-08-30] MEDS: NEURONTIN 100 MG PO ×2 (09:25→21:48)
[2023-08-30] MEDS: COREG 25 MG PO ×2 (09:25→21:49)
[2023-08-30] MEDS: NOVOLOG FLEXPEN-LOW RESISTANCE 2 UNITS SC (09:26)
[2023-08-30] MEDS: DELTASONE 2.5 MG PO (09:26)
[2023-08-30] MEDS: HEPARIN SC (09:53)
[2023-08-30 11:45] VITALS: BP 149/73
[2023-08-30] MEDS: NOVOLOG FLEXPEN-LOW RESISTANCE SC (13:04)
[2023-08-30 13:05] LABS: Glucose - Point of Care 366 mg/dl (70-99)
[2023-08-30] MEDS: NOVOLOG FLEXPEN-LOW RESISTANCE 5 UNITS SC (13:53)
--- NOTE | 2023-08-30 14:01 | CM ---
Case Management following for d/c planning
Pt for cysto tomorrow
Weaning FiO2, diuresing
From [place] - LTC
Plan - return to [place] when medically stable
--- NOTE | 2023-08-30 15:13 | W.PN.HOSP.TC ---
Today's Communication/Plan
-
Adjusting pain medication
Extra dose of Lasix
Follow-up weight/creatinine
Increasing prednisone to 5 mg daily
Assessment / Plan
Assessment / Plan
CT a/p 08/24
1).There is a 7 mm minimally spiculated pulmonary nodule in the posterior right lung base, new compared with the 11/02/2022 and 04/30/2023 examinations. This nodule may be benign or malignant. Follow-up noncontrast CT chest in 3-6 months is
recommended.
2).There are no obstructing renal or ureteral calculi.
There is, however, moderate right hydronephrosis and right hydroureter down to the level of the similar to that seen on the 04/30/2023 study. This may be on the basis of vesicoureteral reflux. Noncalcific obstruction or recently passed calculus is
less likely given the stability compared with the prior study
3). Nonurgent findings include:
-Atherosclerosis
-Calcified granuloma at the right lung base
-Diverticula are present in the colon with no CT evidence of diverticulitis
-Multilevel lumbar degenerative disc disease
-Compression screw and intramedullary vinita in the proximal right femur

#Norovirus infection
#Abdominal pain
#Nausea/vomiting
-Having diffuse abdominal discomfort/pain.
-CT abdomen pelvis showing new hydroureter hydro nephrosis.
-Some diarrhea and positive for norovirus.
-Complains of ongoing nausea and poor oral intake.
#Acute Hypoxemic and Hypercapnic Respiratory failure
Presumed acute on chronic diastolic congestive heart failure
-Chest x-ray showing pulmonary edema. Images reviewed and compared with previous images personally
-Currently on 4 L oxygen through nasal cannula
-Stopped IV antibiotics with no clear concern of pneumonia
-Suspected component of diastolic heart for exacerbation. EF 55 to 60% on echo. proBNP 8000
-Getting IV Lasix 40mg/daily. Providing an extra dose of IV 40 mg Lasix today. Weight stable around 69 kg.
#Generalized pain
Chronic pain syndrome
-patient has palpable pain throughout the whole body
-possible fibromyalgia vs PMR
-on prednisone 2.5mg/d - increasing to 5 mg/d
#JOSELIN -resolved
#Moderate left hydronephrosis and left hydroureter, chronic
-resolved
�Follow-up urology recommendations
-urine cultures negative, no evidence of UTI
-Patient going to OR tomorrow by urology service
#Hypokalemia
-monitor and replete
#7 mm minimally spiculated pulmonary nodule
-f/u CT imaging in 3 months with pulm
#Occult GI blood loss
-Hbg stable at 11.5
-overall high risk for endoscopic procedure eval
-manage conservatively, f/u hbg level
#DM-II
- A1C - 8.6
-adding premeal novolog
DVT Prophylaxis: Trial HSQ
Code Status: DNR
Patient have component of dysphagia and high risk of mucous plugging/respiratory arrest and related pulmonary complication.
Total time spent : 53 mins
Anticipated Discharge: > 48 hours
Subjective/Interval History
-
Date of Service: August 30, 2023
Patient continues to complain some abdominal pain/distress
Verbalizing words but incoherent at time
No reported vomiting. Patient does feel nauseous
Objective Data
-
Labs:
Laboratory Results
08/30/23
05:30
WBC 8.6
Hgb 11.2 L
Hct 34.0 L
Plt Count 190
Sodium 145
Potassium 4.0
Chloride 112 H
Carbon Dioxide 28
BUN 26 H
Creatinine 0.7
Glucose 217 H
Calcium 8.9
Total Bilirubin 0.7
AST 21
ALT 16
Alkaline Phosphatase 64
Vital Signs:
Vital Signs
Temp Pulse Resp BP Pulse Ox
98.7 F 85 28 149/73 93
08/30/23 11:45 08/30/23 11:45 08/30/23 11:45 08/30/23 11:45 08/30/23 11:45
I&O
08/29/23 08/30/23 08/31/23
06:59 06:59 06:59
Intake Total 240 / 240
Balance 240 / 240
Review of Systems
-
Unable to obtain full review of systems at this time due to: Other (Limited due to speech changes)
Physical Exam
-
General: Appears Chronically Ill, Obese and Other
HEENT: Oxygen (4 L NC)
Respiratory: Rhonchi
Cardiac: Regular Rhythm and S1/S2; Negative Murmur
GI: Soft, Nondistended and Tender (LLQ pain)
Skin: Negative Rash
Neuro: Awake, Alert and AO x 3
Psych: Calm
[2023-08-30 16:00] VITALS: BP 179/86
[2023-08-30 16:49] LABS: Glucose - Point of Care 290 mg/dl (70-99)
[2023-08-30] MEDS: NOVOLOG FLEXPEN-LOW RESISTANCE 3 UNITS SC (17:10)
[2023-08-30] MEDS: NOVOLOG FLEXPEN 3 UNITS SC (17:11)
[2023-08-30 21:42] LABS: Glucose - Point of Care 228 mg/dl (70-99)
[2023-08-30] MEDS: DESYREL 50 MG PO (21:47)
[2023-08-30] MEDS: LANTUS 0.0800000000000000017 UNITS SC (21:51)
[2023-08-30] MEDS: SENOKOT PO (21:51)
[2023-08-31] VITALS (12 sets, daily range): BP systolic 119–169; BP diastolic 58–98; BMI 26.9
[2023-08-31 05:36] LABS: Glucose - Point of Care 226 mg/dl (70-99)
[2023-08-31] MEDS: SYNTHROID 125 MCG PO (05:37)
[2023-08-31] MEDS: NOVOLOG FLEXPEN-LOW RESISTANCE 2 UNITS SC (05:38)
--- NOTE | 2023-08-31 05:47 | PTCARENOTE ---
@0530:Pt had a large brown form BM. NPO maintained. No loose stool this shift.
[2023-08-31 06:22] LABS: Hematocrit 37.6 % (37.0-47.0); Hemoglobin 12.2 g/dL (12.0-16.0); Mean Corp Hgb Conc. 32.4 g/dL (33.0-37.0); Mean Corpuscular Volume 92.6 fL (81.0-99.0); Mean Platelet Volume 10.1 fL (7.4-10.4); Platelet Count 208 10^3/uL (130-400); Red Blood Cell Count 4.06 10^6/uL (4.20-5.40); Red Cell Dist. Width 12.5 % (11.5-14.5); White Blood Cell Count 7.9 10^3/uL (4.8-10.8)
[2023-08-31 06:51] LABS: ALT (SGPT) 15 U/L (0-35); AST (SGOT) 19 U/L (14-36); Albumin 3.5 g/dl (3.5-5.0); Alkaline Phosphatase 76 U/L (38-126); Blood Urea Nitrogen 28 mg/dl (7-17); Carbon Dioxide 36 mmol/L (22-30); Chloride 105 mmol/L (98-107); Estimated Creatinine Clearance 43 ml/min; Glucose 206 mg/dl (70-99); Potassium 3.3 mmol/L (3.5-5.1); Sodium 145 mmol/L (135-145); Total Bilirubin 0.7 mg/dl (0.2-1.3); Total Protein 6.2 g/dl (6.3-8.2); eGFR > 60.00
--- NOTE | 2023-08-31 07:12 | PTCARENOTE ---
@0626;Pt had a 13 beat of sinus tach as pt was sitting up in bed. V/S charted ,AQ=696/98 .TT TRAFFIC SIGNAL MECHANIC Joeb on tele strip and v/s.Mag added to AM labs
[2023-08-31] MEDS: NOVOLOG FLEXPEN SC ×2 (08:15→12:38)
[2023-08-31] MEDS: PROTONIX IV 40 MG IV (08:16)
[2023-08-31] MEDS: KLONOPIN 0.25 MG PO ×2 (08:16→20:12)
[2023-08-31] MEDS: LASIX 40 MG IV (08:17)
[2023-08-31] MEDS: COREG 25 MG PO ×2 (08:17→20:16)
[2023-08-31] MEDS: DELTASONE 5 MG PO (08:17)
[2023-08-31] MEDS: NEURONTIN 100 MG PO ×2 (08:17→20:12)
[2023-08-31] MEDS: NSS (PRESERVATIVE FREE) 10 ML IV (08:18)
[2023-08-31 08:22] LABS: Magnesium 1.5 mg/dl (1.6-2.3)
[2023-08-31] MEDS: NSS 1000 IV (08:26)
[2023-08-31 11:53] LABS: Glucose - Point of Care 274 mg/dl (70-99)
--- NOTE | 2023-08-31 14:07 | W.IMMPOSTOP ---
Surgical Immed Post Op Note
-
Primary Surgeon:
felix
Assisting Surgeon:
Pre-op Diagnosis:
hematuria and left hydro
Post-op Diagnosis:
same
Procedure Performed:
cysto/bilateral retrogrades, left ureteroscopy
Anesthesia Type:
gen
Specimen / Cultures:
none
Estimated Blood Loss:
2cc
Complications:
none
Operative Findings:
heavily trabeculated bladder
golf hole typr left uo- retrograde shows hydroureteronephorsis down to bladder- ureteroscopy with no lesion or mass
no acute pathology
stable for discharge urologically
no intervention required
--- NOTE | 2023-08-31 14:15 | W.PN.HOSP.TC ---
Today's Communication/Plan
-
continue diuretic therapy
wean off o2 as possible
replace mag
see note
Assessment / Plan
Assessment / Plan
CT a/p 08/24
1).There is a 7 mm minimally spiculated pulmonary nodule in the posterior right lung base, new compared with the 11/02/2022 and 04/30/2023 examinations. This nodule may be benign or malignant. Follow-up noncontrast CT chest in 3-6 months is
recommended.
2).There are no obstructing renal or ureteral calculi.
There is, however, moderate right hydronephrosis and right hydroureter down to the level of the similar to that seen on the 04/30/2023 study. This may be on the basis of vesicoureteral reflux. Noncalcific obstruction or recently passed calculus is
less likely given the stability compared with the prior study
3). Nonurgent findings include:
-Atherosclerosis
-Calcified granuloma at the right lung base
-Diverticula are present in the colon with no CT evidence of diverticulitis
-Multilevel lumbar degenerative disc disease
-Compression screw and intramedullary vinita in the proximal right femur

#Norovirus infection
#Abdominal pain
#Nausea/vomiting
-Having diffuse abdominal discomfort/pain.
-CT abdomen pelvis showing new hydroureter hydro nephrosis.
-Some diarrhea and positive for norovirus.
-Complains of ongoing nausea and poor oral intake.
-Last BM reported to be formed and soft. continue monitoring.
#Acute Hypoxemic and Hypercapnic Respiratory failure
Presumed acute on chronic diastolic congestive heart failure
-Chest x-ray showing pulmonary edema. Images reviewed and compared with previous images personally
-Currently on 4 L oxygen through nasal cannula
-Stopped IV antibiotics with no clear concern of pneumonia
-Suspected component of diastolic heart for exacerbation. EF 55 to 60% on echo. proBNP 8000
-Getting IV Lasix 40mg/daily.
-weight continue to down trend . 66kg today. No urine output charted.
#Generalized pain
Chronic pain syndrome
-patient has palpable pain throughout the whole body
-possible fibromyalgia vs PMR
-on prednisone 2.5mg/d - increasing to 5 mg/d
#JOSELIN -resolved
#Moderate left hydronephrosis and left hydroureter, chronic
-resolved
�Follow-up urology recommendations
-urine cultures negative, no evidence of UTI
-Patient going to OR today for further investigation of hydro.
#Hypokalemia
Hypomagnesemia
-monitor and replete
-replace Mag
#7 mm minimally spiculated pulmonary nodule
-f/u CT imaging in 3 months with pulm
#Occult GI blood loss
-Hbg stable at 11.5
-overall high risk for endoscopic procedure eval
-manage conservatively, f/u hbg level
#DM-II
- A1C - 8.6
-adding premeal novolog
DVT Prophylaxis: Trial HSQ
Code Status: DNR
Patient have component of dysphagia and high risk of mucous plugging/respiratory arrest and related pulmonary complication.
Anticipated Discharge: 24 - 48 hours
Subjective/Interval History
-
Date of Service: August 31, 2023
Complains of abdominal discomfort. No nausea/vomiting
no other issues
Objective Data
-
Labs:
Laboratory Results
08/31/23
06:00
WBC 7.9
Hgb 12.2
Hct 37.6
Plt Count 208
Sodium 145
Potassium 3.3 L
Chloride 105
Carbon Dioxide 36 H
BUN 28 H
Creatinine 0.8
Glucose 206 H
Calcium 9.0
Total Bilirubin 0.7
AST 19
ALT 15
Alkaline Phosphatase 76
Vital Signs:
Vital Signs
Temp Pulse Resp BP Pulse Ox
98.8 F 104 18 119/67 94
08/31/23 11:40 08/31/23 11:40 08/31/23 11:40 08/31/23 11:40 08/31/23 11:40
I&O
08/30/23 08/31/23 09/01/23
06:59 06:59 06:59
Intake Total 360 / 360 440 / 440
Balance 360 / 360 440 / 440
Review of Systems
-
Respiratory: Reports No Symptoms
Cardiac: Reports No Symptoms
Abdomen/GI: Reports Abdominal Pain and Nausea; Denies Vomiting
Physical Exam
-
General: Appears Chronically Ill, Obese and Other
HEENT: Oxygen (4 L NC)
Respiratory: Rhonchi
Cardiac: Regular Rhythm and S1/S2; Negative Murmur
GI: Soft, Nondistended and Tender (LLQ pain)
Skin: Negative Rash
Neuro: Awake, Alert and AO x 3
Psych: Calm
[2023-08-31 14:32] LABS: Glucose - Point of Care 292 mg/dl (70-99)
[2023-08-31] MEDS: NOVOLOG vial 6 UNITS SC (14:56)
[2023-08-31] MEDS: MAGNESIUM SULFATE 50 IV (15:00)
--- NOTE | 2023-08-31 15:46 | PTOTSP ---
SHIPPER RECEIVER Note
Patient s/p general anesthesia for cysto 08/31/2023. New orders required to continue therapy after general anesthesia. Please place orders and will continue tx as appropriate.
[2023-08-31 16:47] LABS: Glucose - Point of Care 266 mg/dl (70-99)
[2023-08-31] MEDS: NOVOLOG FLEXPEN-LOW RESISTANCE SC (16:47)
[2023-08-31] MEDS: NOVOLOG FLEXPEN 3 UNITS SC (16:53)
[2023-08-31] MEDS: NOVOLOG FLEXPEN-LOW RESISTANCE 3 UNITS SC (16:54)
[2023-08-31] MEDS: PROTONIX 40 MG PO (20:11)
[2023-08-31 21:43] LABS: Glucose - Point of Care 253 mg/dl (70-99)
[2023-08-31] MEDS: DESYREL 50 MG PO (21:47)
[2023-08-31] MEDS: SENOKOT 17.1999999999999993 MG PO (21:48)
[2023-08-31] MEDS: LANTUS 0.0800000000000000017 UNITS SC (21:50)
--- NOTE | 2023-09-01 04:44 | DOWNTIME ---
There was a [employer] Downtime on 09/01/2023 from 0100 to 09/01/2023 at 0439. Downtime documentation of patient's care, including medication administrations, has been reconciled in the electronic record per guidelines. Refer to the
patient's paper chart under the miscellaneous tab to see printed paper medication records and downtime forms.
[2023-09-01] MEDS: SYNTHROID 125 MCG PO (05:38)
[2023-09-01 06:00] VITALS: BMI 27.1
[2023-09-01 06:42] LABS: Hematocrit 33.7 % (37.0-47.0); Hemoglobin 11.6 g/dL (12.0-16.0); Mean Corp Hgb Conc. 34.4 g/dL (33.0-37.0); Mean Corpuscular Hgb 30.2 pg (27.0-31.0); Mean Corpuscular Volume 87.8 fL (81.0-99.0); Mean Platelet Volume 10.1 fL (7.4-10.4); Platelet Count 206 10^3/uL (130-400); Red Blood Cell Count 3.84 10^6/uL (4.20-5.40); Red Cell Dist. Width 12.2 % (11.5-14.5); White Blood Cell Count 5.4 10^3/uL (4.8-10.8)
[2023-09-01 07:06] LABS: Blood Urea Nitrogen 34 mg/dl (7-17); Calcium 8.6 mg/dl (8.4-10.2); Carbon Dioxide 33 mmol/L (22-30); Chloride 95 mmol/L (98-107); Estimated Creatinine Clearance 43 ml/min; Glucose 289 mg/dl (70-99); Potassium 3.5 mmol/L (3.5-5.1); Sodium 138 mmol/L (135-145); eGFR > 60.00
[2023-09-01 09:18] VITALS: BP 151/67
[2023-09-01] MEDS: PROTONIX 40 MG PO ×2 (09:18→20:10)
[2023-09-01] MEDS: NEURONTIN 100 MG PO ×2 (09:18→20:10)
[2023-09-01] MEDS: DELTASONE 5 MG PO (09:19)
[2023-09-01] MEDS: COREG 25 MG PO ×2 (09:19→20:10)
[2023-09-01] MEDS: KLONOPIN 0.25 MG PO ×2 (09:20→20:10)
[2023-09-01] MEDS: LASIX 40 MG IV (09:23)
[2023-09-01 09:26] LABS: Glucose - Point of Care 299 mg/dl (70-99)
--- NOTE | 2023-09-01 09:57 | PN.CDI ---
CDI
- -
CDI:
Physician Documentation Request
Admit Date: 08/25/23 22:44
Dear Doctor Zachery,
Clinical Indicators:
Patient admitted with norovirus infection; PMH includes HTN.
08/27 Acute on chronic HFpEF suspected; IV Lasix ordered.
Hydralazine 10mg IV x 2 doses given.
BP trend:
08/28/23
11:30 08/29/23
23:00 08/30/23
07:30
Blood pressure 190/92 210/115 185/98
08/30/23
09:25
Blood pressure 184/92
Please clarify which, if any of the following, is a more accurate diagnosis reflecting the type and acuity of the documented hypertension:
Hypertensive Emergency - B/P is severely elevated (systolic > or = to 180 or diastolic > or = to 110) but can occur at lower levels especially in patients who did not previously have high B/P. There is usually associated organ damage. Symptoms may
include: memory loss, LOC, CVA, HI, angina, renal failure, pulmonary edema. Generally requires more aggressive treatment and a hospitalization.
Hypertensive Urgency - B/P is severely elevated (systolic > or = to 180 or diastolic > or = to 110) but there is no associated organ damage. Symptoms may include: headache, shortness of breath, nosebleeds, severe anxiety. Treatment usually consists
of addition to or adjusting of oral medications and does not generally necessitate hospitalization.
Essential primary hypertension only
Other (please specify)
Use of terms such as suspected, likely, concern for, or probable (associated with a specific diagnosis that is being evaluated, monitored, or treated as if it exists) are acceptable and can be coded in the inpatient setting, when documented at the
time of discharge.
Thank you,
SANAM Tsai RN
CDI Specialist
available via tiger text
Please use your independent medical judgment in providing your response.
--- NOTE | 2023-09-01 10:09 | PN.CDI ---
CDI
- -
CDI:
Physician Documentation Request
Admit Date: 08/25/23 22:44
Dear Doctor Zachery,
Clinical Indicators:
Patient admitted with norovirus infection and JOSELIN.
08/27 RN note, 'pt found with change in mental status from report. PT lethargic and stuporous with inability to keep eyes open but does open eyes to voice. PT was AAOx3 for last RN.'
08/27 PN,'hypoxic and lethargic this am. most likely fluid overload. fluids stopped; lasix given and improvement in mental status and hypoxia. '
08/[address]: No acute intracranial abnormality noted.
08/27 VBG:
08/28/23
10:11
VBG pH 7.22 L
VBG pCO2 59 H
VBG pO2 206 H
Based on the above, could you clarify which, if any of the following, is the most likely etiology of the confusion/altered mental status.
Acute Metabolic Encephalopathy
Toxic Metabolic Encephalopathy
Lethargy only
Other, please specify
Use of terms such as suspected, likely, concern for, or probable (associated with a specific diagnosis that is being evaluated, monitored, or treated as if it exists) are acceptable and can be coded in the inpatient setting, when documented at the
time of discharge.
Thank you,
SANAM Tsai RN
CDI Specialist
available via tiger text
Please use your independent medical judgment in providing your response.
[2023-09-01] MEDS: NOVOLOG FLEXPEN-LOW RESISTANCE 3 UNITS SC (11:05)
[2023-09-01] MEDS: NOVOLOG FLEXPEN 3 UNITS SC (11:05)
--- NOTE | 2023-09-01 12:52 | PTOTSP ---
Dysphagia Therapy
Patient presents with signs concerning for pharyngeal dysphagia and aspiration with thin liquids. Recommend liquid downgrade. Video swallow study warranted to further assess pharyngeal swallow and r/o silent aspiration with thickened liquids.
Discussed with RN and MD.
Recommend:
1. IDDSI Level 4 Puree, IDDSI Level 2 Mildly Thick Liquids
2. Medications - crushed in puree (if medically cleared to do so)
3. FULL supervision/assistance
4. Strategies: upright to 90 degrees, small single sips/bites, remain upright for 30 minutes after PO
5. Video swallow study
--- NOTE | 2023-09-01 14:18 | W.PN.HOSP.TC ---
Today's Communication/Plan
-
continue lasix
wean off o2
VSE
possible d/c tomorrow
Assessment / Plan
Assessment / Plan
CT a/p 08/24
1).There is a 7 mm minimally spiculated pulmonary nodule in the posterior right lung base, new compared with the 11/02/2022 and 04/30/2023 examinations. This nodule may be benign or malignant. Follow-up noncontrast CT chest in 3-6 months is
recommended.
2).There are no obstructing renal or ureteral calculi.
There is, however, moderate right hydronephrosis and right hydroureter down to the level of the similar to that seen on the 04/30/2023 study. This may be on the basis of vesicoureteral reflux. Noncalcific obstruction or recently passed calculus is
less likely given the stability compared with the prior study
3). Nonurgent findings include:
-Atherosclerosis
-Calcified granuloma at the right lung base
-Diverticula are present in the colon with no CT evidence of diverticulitis
-Multilevel lumbar degenerative disc disease
-Compression screw and intramedullary vinita in the proximal right femur

#Norovirus infection
#Abdominal pain - chronic
#Nausea/vomiting - resolved
-Having diffuse abdominal discomfort/pain.
-CT abdomen pelvis showing new hydroureter hydro nephrosis.
-Some diarrhea and positive for norovirus.
-Complains of ongoing nausea and poor oral intake.
-Last BM reported to be formed and soft. continue monitoring.
#Acute Hypoxemic and Hypercapnic Respiratory failure
Presumed acute on chronic diastolic congestive heart failure
-Chest x-ray showing pulmonary edema. Images reviewed and compared with previous images personally
-Currently on 4 L oxygen through nasal cannula
-Stopped IV antibiotics with no clear concern of pneumonia
-Suspected component of diastolic heart for exacerbation. EF 55 to 60% on echo. proBNP 8000
-Getting IV Lasix 40mg/daily.
-weight continue to down trend . 66kg today. No urine output charted.
# Dysphagia
-ST recommended to downgrade diet to nectar thick liquid.
-VSE ordered
#Generalized pain suspecting FM
Chronic pain syndrome
-patient has palpable pain throughout the whole body
-possible fibromyalgia vs PMR
-on prednisone 2.5mg/d - increasing to 5 mg/d
-dose of oxycodone increased
# Acute metabolic encephalopathy
-Resolved
#JOSELIN -resolved
#Moderate left hydronephrosis and left hydroureter, chronic
-resolved
�Follow-up urology recommendations
-urine cultures negative, no evidence of UTI
-Patient going to OR today for further investigation of hydro.
# Hypertensive urgency -resolve
-maintain on home dose of coreg
#Hypokalemia
Hypomagnesemia
-monitor and replete
-replace Mag
#7 mm minimally spiculated pulmonary nodule
-f/u CT imaging in 3 months with pulm
#Occult GI blood loss
-Hbg stable at 11.5
-overall high risk for endoscopic procedure eval
-manage conservatively, f/u hbg level
#DM-II
- A1C - 8.6
-adding premeal novolog
DVT Prophylaxis: Trial HSQ
Code Status: DNR
Anticipated Discharge: Within 24 hours
Subjective/Interval History
-
Date of Service: September 01, 2023
Objective Data
-
Labs:
Laboratory Results
09/01/23
06:10
WBC 5.4
Hgb 11.6 L
Hct 33.7 L
Plt Count 206
Sodium 138
Potassium 3.5
Chloride 95 L
Carbon Dioxide 33 H
BUN 34 H
Creatinine 0.8
Glucose 289 H
Calcium 8.6
Vital Signs:
Vital Signs
Temp Pulse Resp BP Pulse Ox
97.2 F 80 17 151/67 95
08/31/23 23:40 09/01/23 09:19 08/31/23 23:40 09/01/23 09:19 09/01/23 12:50
I&O
08/31/23 09/01/23 09/02/23
06:59 06:59 06:59
Intake Total 360 / 360 1330 / 1330
Balance 360 / 360 1330 / 1330
[2023-09-01 15:10] LABS: Glucose - Point of Care 430 mg/dl (70-99)
--- NOTE | 2023-09-01 15:30 | CM ---
Case management following for d/c planning
Pt from [facility] - plan to return when medically ready
Dr Bingham reports pt may be ready tomorrow
Chinyere at [facility] made aware
Plan - return to [facility] when medically ready. No auth needed
--- NOTE | 2023-09-01 15:40 | PTOTSP ---
Video Swallow Study
Summary: Patient presents with moderate oral and mild-moderate pharyngeal stages of swallowing. There was deep laryngeal penetration which did not completely clear the larynx with thin liquids and mildly thick liquids. Patient could not clear
contrast as volitional cough was weak. A chin tuck was ineffective with thin liquids but effective with mildly thick liquids via cup. However, given patient will likely be unable to follow strategy at this time given confusion/AMS, consider
modified diet below until this strategy is learned in therapy. Please see patient care note for full details of penetration and swallowing physiology.
Recommend:
1. IDDSI Level 4 (Puree), IDDSI Level 3 (Moderately Thick Liquids)
2. Medications - crushed in puree (if medically cleared to do so)
3. Full supervision/assistance
4. Strategies: upright to 90 degrees, small single sips/bites, remain upright for 30 minutes after PO
5. Aspiration Risk Hydration Protocol - thin water via cup in between meals after oral care with supervision
6. Dysphagia therapy at the acute care level and after D/C at this time for education and re-assessment.
[2023-09-01 15:49] LABS: Glucose 416 mg/dl (70-99)
[2023-09-01] MEDS: NOVOLOG FLEXPEN SC (16:03)
[2023-09-01] MEDS: NOVOLOG FLEXPEN-LOW RESISTANCE SC (16:03)
[2023-09-01] MEDS: NOVOLOG FLEXPEN 10 UNITS SC (16:12)
[2023-09-01 16:15] VITALS: BP 131/64
[2023-09-01] MEDS: ROXICODONE 5 MG PO (16:51)
[2023-09-01 18:13] LABS: Glucose - Point of Care 413 mg/dl (70-99)
[2023-09-01 19:05] LABS: Glucose 320 mg/dl (70-99)
[2023-09-01] MEDS: NOVOLOG FLEXPEN-LOW RESISTANCE 4 UNITS SC (19:13)
[2023-09-01] MEDS: NOVOLOG FLEXPEN 5 UNITS SC (19:13)
[2023-09-01] MEDS: ROXICODONE 10 MG PO (20:35)
[2023-09-01 21:38] LABS: Glucose - Point of Care 251 mg/dl (70-99)
[2023-09-01] MEDS: SENOKOT 17.1999999999999993 MG PO (22:50)
[2023-09-01] MEDS: LANTUS 0.0800000000000000017 UNITS SC (22:50)
[2023-09-01] MEDS: DESYREL 50 MG PO (22:50)
[2023-09-01 23:47] VITALS: BP 117/53
[2023-09-02 06:00] VITALS: BMI 27.0
[2023-09-02 06:28] LABS: Hematocrit 35.1 % (37.0-47.0); Hemoglobin 11.2 g/dL (12.0-16.0); Mean Corp Hgb Conc. 31.9 g/dL (33.0-37.0); Mean Corpuscular Hgb 29.7 pg (27.0-31.0); Mean Corpuscular Volume 93.1 fL (81.0-99.0); Platelet Count 209 10^3/uL (130-400); Red Blood Cell Count 3.77 10^6/uL (4.20-5.40); Red Cell Dist. Width 12.5 % (11.5-14.5); White Blood Cell Count 9.2 10^3/uL (4.8-10.8)
[2023-09-02 07:00] VITALS: BP 152/70
[2023-09-02 07:46] LABS: Blood Urea Nitrogen 46 mg/dl (7-17); Calcium 8.6 mg/dl (8.4-10.2); Chloride 92 mmol/L (98-107); Estimated Creatinine Clearance 38 ml/min; Glucose 219 mg/dl (70-99); Potassium 3.5 mmol/L (3.5-5.1); Sodium 139 mmol/L (135-145); eGFR > 60.00
[2023-09-02 07:56] LABS: Carbon Dioxide 38 mmol/L (22-30)
[2023-09-02 08:02] LABS: Glucose - Point of Care 240 mg/dl (70-99)
[2023-09-02 08:07] VITALS: BP 152/70
--- NOTE | 2023-09-02 08:32 | PTOTSP ---
Patient is a LTC resident at [facility]. She is assisted for all ADL's and requires Presley lift at baseline. No functional goals given her baseline level of function - skilled PT is not warranted at this time, will sign off.
[2023-09-02] MEDS: PROTONIX 40 MG PO (08:55)
[2023-09-02] MEDS: NEURONTIN 100 MG PO (08:55)
[2023-09-02] MEDS: KLONOPIN 0.25 MG PO (08:55)
[2023-09-02] MEDS: DELTASONE 5 MG PO (08:56)
[2023-09-02] MEDS: COREG 25 MG PO (08:56)
[2023-09-02] MEDS: LASIX 40 MG IV (08:57)
[2023-09-02] MEDS: NOVOLOG FLEXPEN 5 UNITS SC ×2 (08:57→12:57)
[2023-09-02] MEDS: NOVOLOG FLEXPEN-LOW RESISTANCE 2 UNITS SC (08:57)
[2023-09-02] MEDS: SYNTHROID 125 MCG PO (08:58)
--- NOTE | 2023-09-02 12:15 | PTOTSP ---
ST Follow-Up
Pt continues to present with a moderate oropharyngeal dysphagia.
Recommendations:
- Continue with pureed solids (L4) and moderately (honey) thick liquids (L3).
- Continue with ARHP.
- Encourage pt to cough to expectorate when she presents with a wet vocal quality; if unsuccessful, utilize suctioning via yankauer to remove.
- [employer] will continue to follow.
--- NOTE | 2023-09-02 12:47 | CM ---
Case management following for d/c planning
Pt medically ready for d/c - from [facility]
Chinyere at [facility] made aware
Transport arranged for 2:30PM
Daughter made aware of transport
Discussed IMM with daughter Maryellen Tabares
Plan - return to [facility]
-
P - [phone]
F - [phone]
[2023-09-02 12:53] LABS: Glucose - Point of Care 381 mg/dl (70-99)
[2023-09-02] MEDS: NOVOLOG FLEXPEN-LOW RESISTANCE 5 UNITS SC (12:56)
[2023-09-02 13:06] VITALS: BP 122/47
--- NOTE | 2023-09-02 14:58 | W.PN.HOSP.TC ---
Today's Communication/Plan
-
d/c home
Assessment / Plan
Assessment / Plan
CT a/p 08/24
1).There is a 7 mm minimally spiculated pulmonary nodule in the posterior right lung base, new compared with the 11/02/2022 and 04/30/2023 examinations. This nodule may be benign or malignant. Follow-up noncontrast CT chest in 3-6 months is
recommended.
2).There are no obstructing renal or ureteral calculi.
There is, however, moderate right hydronephrosis and right hydroureter down to the level of the similar to that seen on the 04/30/2023 study. This may be on the basis of vesicoureteral reflux. Noncalcific obstruction or recently passed calculus is
less likely given the stability compared with the prior study
3). Nonurgent findings include:
-Atherosclerosis
-Calcified granuloma at the right lung base
-Diverticula are present in the colon with no CT evidence of diverticulitis
-Multilevel lumbar degenerative disc disease
-Compression screw and intramedullary vinita in the proximal right femur

#Norovirus infection
#Abdominal pain - chronic
#Nausea/vomiting - resolved
-Having diffuse abdominal discomfort/pain.
-CT abdomen pelvis showing new hydroureter hydro nephrosis.
-Some diarrhea and positive for norovirus.
-Complains of ongoing nausea and poor oral intake.
-Last BM reported to be formed and soft. continue monitoring.
#Acute Hypoxemic and Hypercapnic Respiratory failure
Presumed acute on chronic diastolic congestive heart failure
-Chest x-ray showing pulmonary edema. Images reviewed and compared with previous images personally
-Currently on 4 L oxygen through nasal cannula
-Stopped IV antibiotics with no clear concern of pneumonia
-Suspected component of diastolic heart for exacerbation. EF 55 to 60% on echo. proBNP 8000
-Getting IV Lasix 40mg/daily.
-weight continue to down trend . 66kg today. No urine output charted.
# Dysphagia
-ST recommended to downgrade diet to nectar thick liquid.
-VSE cleared and on dysphagia diet.
#Generalized pain suspecting FM
Chronic pain syndrome
-patient has palpable pain throughout the whole body
-possible fibromyalgia vs PMR
-on prednisone 2.5mg/d - increasing to 5 mg/d
-dose of oxycodone increased
# Acute metabolic encephalopathy
-Resolved
#JOSELIN -resolved
#Moderate left hydronephrosis and left hydroureter, chronic
-resolved
�Follow-up urology recommendations
-urine cultures negative, no evidence of UTI
-Patient going to OR today for further investigation of hydro.
# Hypertensive urgency -resolve
-maintain on home dose of coreg
#Hypokalemia
Hypomagnesemia
-monitor and replete
-replace Mag
#7 mm minimally spiculated pulmonary nodule
-f/u CT imaging in 3 months with pulm
#Occult GI blood loss
-Hbg stable at 11.5
-overall high risk for endoscopic procedure eval
-manage conservatively, f/u hbg level
#DM-II
- A1C - 8.6
-adding premeal novolog
DVT Prophylaxis: Trial HSQ
Code Status: DNR
More than 30 minutes spent in discharge including
Final examination of the patient
Summarizing hospital stay
Instructions for continuing care to all relevant caregivers
Preparation of discharge records, prescriptions, and referral forms
Total time spent (in minutes): 38 mins
Anticipated Discharge: Today
Subjective/Interval History
-
Date of Service: September 02, 2023
Continues to complain diffuse pain
Continues to feel lethargic
Good oral intake
Objective Data
-
Labs:
Laboratory Results
09/02/23
06:14
WBC 9.2
Hgb 11.2 L
Hct 35.1 L
Plt Count 209
Sodium 139
Potassium 3.5
Chloride 92 L
Carbon Dioxide 38 H
BUN 46 H
Creatinine 0.9
Glucose 219 H
Calcium 8.6
Vital Signs:
Vital Signs
Temp Pulse Resp BP Pulse Ox
97.5 F 70 18 122/47 96
09/02/23 13:06 09/02/23 13:06 09/02/23 13:06 09/02/23 13:06 09/02/23 13:29
I&O
09/01/23 09/02/23 09/03/23
06:59 06:59 06:59
Intake Total 1330 / 1330
Balance 1330 / 1330
Review of Systems
-
Respiratory: Reports No Symptoms
Cardiac: Reports No Symptoms
Abdomen/GI: Reports No Symptoms
Physical Exam
-
General: Appears Chronically Ill, Obese and Other
HEENT: Oxygen (4 L NC)
Respiratory: Clear to Auscultation
Cardiac: Regular Rhythm and S1/S2; Negative Murmur
GI: Soft, Nondistended and Tender (LLQ pain)
Skin: Negative Rash
Neuro: Awake, Alert and AO x 3
Psych: Calm
--- NOTE | 2023-09-02 17:08 | W.DCSUMMARY ---
Discharge Summary
Discharge Data
Date of Admission: 08/25/23
Date of Discharge: 09/02/23
-
Pending Results: No
Hospital Course
Discharging Physician : Dr Woody Bingham
Disposition : To SNF
Primary care physician : Dr Twin Gonzalez
Principal Discharge diagnosis :
Norovirus infection
Acute diarrhea with nausea and vomiting
Acute hypoxic and hypercapnic respiratory failure
Acute on chronic diastolic congestive heart failure
Right hydronephrosis and hydroureter
Chronic dysphagia
Acute kidney injury
Electrolyte imbalance
Hypertensive urgency
Chronic pain/fibromyalgia
Occult gastrointestinal blood loss
Chronic Discharge diagnosis :
Type 2 diabetes
Obesity
Diverticular disease
Hypothyroidism
Chronic ambulatory dysfunction
Gastroesophageal for disease
Peripheral neuropathy
Hospital Course :
Patient is 88-year-old female with above-mentioned past medical history brought in for new onset of abdominal pain nausea vomiting and generalized weakness. Patient been having diffuse abdominal pain for few days before ER presentation. Laboratory
evaluation in ER patient was noted to have acute kidney injury. Patient was checked and was found to having heme positive stool as well. Patient stool studies were sent for infectious pathology and was found to be positive for norovirus infection.
Patient abdomen pelvis did not show any major GI tract abnormality although incidentally was found to having worsening hydroureter and hydronephrosis. Patient was managed conservatively with which patient diarrhea improved.
Urology was involved in care and after evaluation patient was taken to cystoscopy lab which showing no acute abnormalities. Acute kidney injury resolved with IV hydration.
Patient also had new hypoxic and hypercapnic respiratory failure. Chest x-ray showing pulmonary edema. Patient was given IV diuretic therapy in the hospital. Of note patient is not on long-term diuretics in skilled nursing. May require to be
restarted if patient have reoccurrence of volume overload state. Patient was started on IV antibiotics a for possible pneumonia and was taken off antibiotics later on. Follow-up echocardiogram was done which showed preserved EF of 55 to 60%.
Patient also have problem with chronic pain and diffuse body ache. Suspecting component of fibromyalgia, patient on prednisone 2.5 mg daily which have increased to 5 mg daily for now. Also started on duloxetine 20 mg daily.
Patient also found to having occult GI blood loss although hemoglobin remained stable. Patient high risk for any endoscopic procedure. Patient started on ferrous sulfate pills.
Patient discharged to [facility] nursing facility post medical stabilization.
Important imaging findings :
None
Procedure findings :
None
Discharge Plan
-
Patient Disposition: Fpc/SNF
Discharge Diagnosis/Procedures: Noro viral infection, Acute hypoxic hypercapnic resp failure, Diastolic HF exacerbation, Acute kidney injury
Condition: Fair
Diet: Other diet
Additional Diets: IDDSI 4 - Pureed diet, IDDSI level 3 - Mod thick liquid
Activity: As tolerated
Driving Restrictions: No driving
Bathing Restrictions: OK to Shower
Referrals:
Twin Gonzalez MD [Family Provider] - in one week
Prescriptions:
New
clonazepam 0.5 mg Tablet
0.25 mg PO BID PRN (Reason: Anxiety) Qty: 6 0RF
prednisone 2.5 mg Tablet
5 mg PO DAILY Qty: 30 0RF
oxycodone 10 mg Tablet
10 mg PO Q4HPRN PRN (Reason: severe pain) Qty: 14 0RF
Rx Instructions:
HALF TABLET FOR MODERATE PAIN
duloxetine [Cymbalta] 20 mg capsule,delayed release(DR/EC)
20 mg PO DAILY Qty: 30 0RF
Continued
carvedilol 25 mg Tablet
25 mg PO BID
ipratropium-albuterol 0.5 mg-3 mg(2.5 mg base)/3 mL Solution For Nebulization
3 ml INHALATION R Q6 PRN (Reason: SOB/wheeze)
trazodone 50 mg Tablet
50 mg PO HS
melatonin 3 mg Tablet
3 mg PO HS
acetaminophen [Tylenol Extra Strength] 500 mg Tablet
1,000 mg PO BID
levothyroxine [Synthroid] 125 mcg Tablet
125 mcg PO DAILY
Rx Instructions:
brand not generic
fluticasone propionate 50 mcg/actuation [place],Suspension
1 spray INTRANASAL BID
insulin aspart U-100 [Novolog FlexPen U-100 Insulin] 100 unit/mL (3 mL) insulin pen
7 units SC MEALS
Patient Comments:
151-200=2units, 201-250=3units, 251-300=4units,301-350=5units, 351-400=6units
ferrous sulfate [FeroSul] 325 mg (65 mg iron) tablet
325 mg PO DAILY
alum-mag hydroxide-simeth [Maalox Maximum Strength] 400-400-40 mg/5 mL Suspension
30 ml PO DAILY PRN (Reason: indigestion )
potassium chloride 10 mEq Tablet Extended Release
10 meq PO DAILY
hydrocortisone [Preparation H Hydrocortisone] 1 % Cream
1 applic [place] BID
Rx Instructions:
apply to hemorrhoids
acetaminophen [Tylenol] 325 mg Tablet
650 mg PO Q6H PRN (Reason: mild pain)
docusate sodium [Colace] 100 mg Capsule
200 mg PO DAILY
gabapentin 100 mg Capsule
100 mg PO BID
insulin aspart U-100 [Novolog FlexPen U-100 Insulin] 100 unit/mL (3 mL) Insulin Pen
0 - 7 sliding scale dose SC ACHS
Rx Instructions:
if 70-150= 0; 151-200= 2; 201-250= 3; 251-300= 4; 301-350= 5; 351-400= 6; 401-450= 7
polyethylene glycol 3350 [Miralax] 17 gram Powder In Packet
17 g PO DAILY PRN (Reason: constipation)
pantoprazole 40 mg Tablet,Delayed Release (Dr/Ec)
40 mg PO DAILY
icosapent ethyl [Vascepa] 1 gram Capsule
2 g PO BID
insulin glargine [Lantus Solostar U-100 Insulin] 100 unit/mL (3 mL) insulin pen
15 unit SC HS
Discontinued
prednisone 2.5 mg Tablet
2.5 mg PO DAILY
ibuprofen [Motrin IB] 200 mg Capsule
600 mg PO Q12H PRN (Reason: Moderate Pain)
methenamine hippurate 1 gram Tablet
1 g PO DAILY Qty: 30 0RF
sennosides 8.8 mg/5 mL Syrup
8.8 mg PO Q12H PRN (Reason: constipation)
clonazepam 0.5 mg Tablet
0.25 mg PO BID
tramadol 25 mg Tablet
25 mg PO Q6H PRN (Reason: severe pain)
Discharge Orders:
Discharge Patient (As Directed); Ordered 09/02/23
Ordered By: Woody Bingham
Discharge Date and Time
Discharge Date/Time: 09/02/23 15:26
Print Language: SWEDISH
--- NOTE | 2023-09-13 09:49 | OID.L.PAT ---
Pulmonary Nodule Pat Letter
- -
09/13/23
NAI FAIR
[address]
[place], [place]
Ashlyn KRAMER,
A pulmonary nodule was seen on an imaging study done by [facility]. This was reviewed by the [facility] Pulmonary Nodule Advisory Board and the following recommendation was made:
Recommendation: Follow up CT Chest - now
If you have any questions, please do not hesitate to contact your primary care physician. If you are in need of a Physician, you can go to [email or web address] and click on 'Find a Provider'. Type 'Family Medicine' in the search.
Oncology Nurse Navigator
[facility]
[phone]
--- NOTE | 2023-09-13 09:50 | OID.L.REC ---
Pulmonary Nodule Follow Up
- Recommendation
09/13/23
Pulmonary Nodule Review Recommendations
Your patient, NIA FAIR, had a pulmonary nodule seen on an imaging study done on 08/25/23 in the [facility] Emergency Room.
This was reviewed by the [facility] Pulmonary Nodule Advisory Board and the following recommendation was made:
Recommendation: Follow up CT Chest - now
If you have any questions please do not hesitate to contact us.
Sincerely,
Oncology Nurse Navigator
[facility]
[phone]
== END 2023-09-02 15:26 | DRG 682 ==
LOC: 3 WEST ACU 22:44
PROVIDERS: Emergency Medicine; Internal Medicine; Specialist; ADMITTING PHYSICIAN Hospitalist; ATTENDING PHYSICIAN Hospitalist; CONSULT PHYSICIAN Urology; EMERGENCY PHYSICIAN Emergency Medicine; FAMILY PHYSICIAN Internal Medicine
PROC: 0TJ98ZZ Inspection of Ureter, Via Natural or Artificial Opening Endoscopic (ICD-10-PCS; 2023-08-31)
PROC: 0TJB8ZZ Inspection of Bladder, Via Natural or Artificial Opening Endoscopic (ICD-10-PCS; 2023-08-31)
PROC: BT141ZZ Fluoroscopy of Kidneys, Ureters and Bladder using Low Osmolar Contrast (ICD-10-PCS; 2023-08-31)
DX: N17.9 Acute kidney failure, unspecified (principal); G93.41 Metabolic encephalopathy; I50.33 Acute on chronic diastolic (congestive) heart failure; J96.01 Acute respiratory failure with hypoxia; J96.02 Acute respiratory failure with hypercapnia; A08.11 Acute gastroenteropathy due to Norwalk agent; I11.0 Hypertensive heart disease with heart failure; N13.6 Pyonephrosis; I16.0 Hypertensive urgency; M79.7 Fibromyalgia; G89.4 Chronic pain syndrome; E11.40 Type 2 diabetes mellitus with diabetic neuropathy, unspecified; E03.9 Hypothyroidism, unspecified; E83.42 Hypomagnesemia; E87.6 Hypokalemia; N32.89 Other specified disorders of bladder; J84.10 Pulmonary fibrosis, unspecified; L89.616 Pressure-induced deep tissue damage of right heel; Z66 Do not resuscitate
CPT/HCPCS: 70450; 71045; 74176; 74230; 74420; 76000; 80048; 80053; 81003; 81015; 82805; 82947; 82962; 83036; 83605; 83735; 83880; 84439; 84443; 85025; 85027; 87040; 87045; 87046; 87070; 87077; 87086; 87427; 87502; 87798; 87811; 92526; 92610; 92611; 93005; 93306; 94640; 96361; 96365; 96366; 96375; 99291; C1758; C1894